=== PATIENT | female | born 1990 | race Caucasian/White ===

== ENCOUNTER 2021-05-24 12:01 | Inpatient (IN) ==
[2021-05-24 12:51] LABS: Hematocrit (blood only) 36.9 % (37-47); Hemoglobin 12.3 g/dL (12.0-16.0); Mean Corpuscular Hemoglobin 26.6 pg (25-34); Mean Corpuscular Hgb Conc 33.3 g/dL (32-36); Mean Corpuscular Volume 79.9 fL (80-100); Mean Platelet Volume 10.7 fL (7.4-10.4); Platelet Count 286 K/uL (130-400); RDW Coefficient of Variation 13.9 % (11.5-14.5); RDW Standard Deviation 39.9 fL (36.4-46.3); Red Blood Count 4.62 M/uL (4.2-5.4)
[2021-05-24 13:06] LABS: Albumin Level 2.8 gm/dl (3.4-5.0); BUN Creatinine Ratio 15.1 (10-20); Calcium 8.8 mg/dl (8.5-10.1); Creatinine Clr Calc Pharmacy 171.5 ml/min; Est GFR (African American) 139.3 ml/min; Est GFR (Non-African American) 120.2 ml/min; Potassium 3.8 mmol/L (3.5-5.1)
[2021-05-24 13:09] LABS: Albumin Globulin Ratio 0.7 (0.9-2); Bilirubin,Total 0.4 mg/dl (0.2-1); Total Protein 6.8 gm/dl (6.4-8.2)
[2021-05-24] MEDS ORDERED: OXYTOCIN 30 UNITS/500 ML BAG IV PRN ×2 (13:47)
[2021-05-24 13:52] LABS: Protein Creatinine Ratio Urine 0.1 (0-0.2); Total Protein Urine Random 33.8 mg/dl (0-11.9)
--- NOTE | 2021-05-24 13:55 | History & Physical Report ---
Date of Service May 24, 2021 Assessment & Plan (1) Gestational hypertension: (2) Gestational diabetes mellitus (GDM) affecting : Plan: 30 y/o G1 at 40 1/7 wga admitted w/ gHTN -mild range BPs, 1 severe range with normal repeat -Fetus cat 1 -Labor - orourke bulb placed after verbal consent was obtained, pt tolerated well. Will have pit as well -GBS neg -gHTN - labs and UP:C wnl, will continue to monitor -GDM - will check bg q4hrs -Epidural PRN History of Present Illness Chief Complaint: HTN Primary Care Provider: Dominique Sesay MD 30 y/o G1 at 40 1/7 wga w/ TOREY 16 by LMP 11 c/w 1st tri US presents for PIH workup from clinic. Seen today as [place] in preparation for IOL tomorrow. Mild range BPs were noted as well as MALIN and was sent for further eval. Here, continued to have mild range on arrival. Denied MALIN, vision change, CP, SOB, RUQ/epigastric pain here. +FM; denies regular ctx, LOF, VB PNI: Hx CHILD NURSE shunt, ok to push per Dr. 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: G1 current Menarche 15, q28-30d Denies hx STIs Last pap 2016, denies hx abnl Allergies Allergy/AdvReac Type Severity Reaction Status Date / Time No Known Allergies Allergy Mild Verified 05/24/21 12:54 Home Medications Medication Instructions Recorded Confirmed Type breast pump #1 ea 03/18/21 05/24/21 Rx acetone (urine) test (Ketone Urine #50 ea 04/01/21 05/24/21 Rx Test) blood sugar diagnostic (OneTouch #150 ea 04/01/21 05/24/21 Rx Verio test strips) blood-glucose meter (OneTouch #1 ea 04/01/21 05/24/21 Rx Verio Flex meter) lancets 33 gauge (OneTouch Delica #150 ea 04/01/21 05/24/21 Rx Plus Lancet) omeprazole 20 mg tablet,delayed 20 mg PO HS 05/22/21 05/24/21 History release vits no.124-ferrous fum 1 tab PO HS 05/22/21 05/24/21 History 27 mg iron-folic acid 800 mcg tablet ( Vitamin) venlafaxine 75 mg capsule,extended 75 mg PO HS 05/22/21 05/24/21 History release 24 hr Patient History Medical History Anxiety History of gastroesophageal reflux (GERD) History of thyroid nodule Hydrocephalus Migraine headache Obesity Seizure Surgical History H/O brain surgery Third Ventriculostomy-2013 Shunt in Head-2014 Shunt- 2019 H/O esophagogastroduodenoscopy H/O thumb surgery S/P wisdom tooth extraction CHILD NURSE (ventriculoperitoneal) shunt status Family History Grandfather Myocardial infarction Other Basal cell carcinoma Hypertension Denies family history of Ovarian cancer Prostate cancer Breast cancer Colorectal cancer Social History Smoking Status: Never smoker Second Hand Exposure: No; Hx Alcohol Use: No Hx Substance Use: No Preferred Language: Sami Visual Impairment: No Limitations Hearing Ability: Normal Beliefs That Will Affect Care: None marital status: marital status details: Lionel Sherman (33) [phone] Current Living Situation: Significant Other Current Living Situation Comment: apartment current occupational status: employed current occupation: [employer] Other Information That Helps Us Care for You: No Feels Safe at Home: Yes Safety Concerns: Feels Safe At This Time Childhood Exposure to Second-Hand Smoke: Yes Dental Care, Regularly: Yes Physical Activity Frequency: 1-2 Times per Week Assistive Devices: None Physical Exam Constitutional: WD/WN, vitals as above Respiratory: normal respiratory effort; no respiratory distress and no labored breathing Genitourinary: OB Exam Abdomen: + vertex (confirmed by US) and + estimated weight (8-9) Manual OB Exam: + cervical dilation (1.5), + cervical effacement 50% and + station -2 OB Exam Monitor Tracing: + external FHT monitor used, + external uterine monitor used (irreg ctx) and + category I (135/mod/+accel/-decel) Results & Data ([facility]) Vital Signs (Past 12 Hours) Vital Signs Temp Pulse Resp BP 05/24/21 13:24 84 162/100 H 05/24/21 13:09 87 151/98 H 05/24/21 12:56 98.2 F 18 05/24/21 12:53 88 145/91 H 05/24/21 12:38 83 152/94 H 05/24/21 12:22 98.7 F 18 05/24/21 12:19 90 134/92 Laboratory Results OB Labs: Blood Type O Negative 10/14/20 Antibody Screen NEGATIVE 03/04/21 Hemoglobin 11.6 g/dL (12.0-16.0) L 03/04/21 Hematocrit 33.9 % (37-47) L 03/04/21 Mean Corpuscular Volume 82.1 fL (80-100) 10/14/20 Platelet Count 336 K/uL (130-400) 10/14/20 Rubella IgG Antibody Immune (Immune) 10/14/20 Rapid Plasma Reagin Nonreactive (Nonreactive) 10/14/20 Hepatitis B Surface Antigen Neg (Neg) 10/14/20 HIV (1&2) Ab and P24 Ag, 4th Gener Neg (Neg) 10/14/20 Glucose 1 Hour 50 gm Load 166 mg/dl (70-130) H 03/04/21 OB Optional Labs: Chlamydia trachomatis RNA NOT DETECTED (NOT DETECTED) 10/14/20 Neisseria gonorrhoeae RNA NOT DETECTED (NOT DETECTED) 10/14/20 Thyroid Stimulating Hormone (TSH) 1.220 uIu/ml (0.300-4.500) 10/14/20 Diagnostic Findings Ant plac Coding Level of Care Code None Diagnoses Gestational hypertension O13.9 Gestational diabetes mellitus (GDM) affecting O24.419 CPT Codes Misx Procedure Codes - 10371 Placement of cervical dilator: 71113 Placement of cervical dilator ([id number])
[2021-05-24] MEDS: LACTATED RINGER'S 1,000 ML IV PRN ×2 (15:23→21:55)
--- NOTE | 2021-05-24 18:41 | Labor Progress Brief Note ---
Date of Service May 24, 2021 Subjective Orourke bulb out Assessment & Plan (1) Gestational hypertension: (2) Gestational diabetes mellitus (GDM) affecting : Plan: 30 y/o G1 at 40 1/7 wga admitted w/ gHTN -mild range BPs, stable -Fetus cat 1, difficult -Labor - s/p orourke bulb, continue titrating pit. Will attempt to arom with next check to place internals due to difficulty tracing -GBS neg -gHTN - labs and UP:C wnl, currently stable -GDM - BG q4hrs, due for check soon -Epidural PRN Admission and Anticipated Discharge Date Admission Date: May 24, 2021 Physical Exam Genitourinary: Manual OB Exam: + cervical dilation 3 cm, + cervical effacement 50% and + station -2 OB Exam Monitor Tracing: + external FHT monitor used, + external uterine monitor used (q3-5) and + category I (125/mod/+accel/-decel) Results & Data ([facility]) Vital Signs (Past 12 Hours) Vital Signs Temp Pulse Resp BP 05/24/21 17:56 74 130/89 05/24/21 17:05 77 130/91 05/24/21 16:25 80 136/95 05/24/21 15:25 78 138/91 05/24/21 15:05 77 141/85 H 05/24/21 14:38 80 140/91 05/24/21 14:24 81 137/89 05/24/21 14:08 78 146/81 H 05/24/21 13:54 83 139/92 05/24/21 13:24 84 162/100 H 05/24/21 13:09 87 151/98 H 05/24/21 12:56 98.2 F 18 05/24/21 12:53 88 145/91 H 05/24/21 12:38 83 152/94 H 05/24/21 12:22 98.7 F 18 05/24/21 12:19 90 134/92 Coding Level of Care Code None Diagnoses Gestational hypertension O13.9 Gestational diabetes mellitus (GDM) affecting O24.419
[2021-05-24] MEDS ORDERED: ePHEDrine sulfate 50 MG/ML AMP ONE (21:43)
[2021-05-24] MEDS ORDERED: SODIUM CHLORIDE 0.9% INJ 10 ML VIAL ONE (21:43)
[2021-05-24] MEDS ORDERED: fentaNYL citrate 100 MCG/2 ML VIAL ONE (21:43)
[2021-05-24] MEDS ORDERED: BUPIVACAINE 0.25% 30 ML VIAL ONE (21:43)
[2021-05-24] MEDS ORDERED: fentaNYL 2MCG/ML ROPIVACAINE 1.25MG/ML 100 ML BAG EPI ONE (21:44)
--- NOTE | 2021-05-24 22:18 | Anesthesiology Consultation ---
Date of Service May 24, 2021 Assessment & Plan Chart Review Chart Review: Acceptable Risk for Labor Epidural Consults Requested none ASA ASA3 Proposed Anesthesia Anesthesia Type: Labor Epidural Risk / Benefits Reviewed With: PT / POA / Parent / Guardian, Accepts Plan and Informed Consent Obtained History Height/Weight Height: 5 ft 9 in Weight: 114.759 kg Allergies Allergy/AdvReac Type Severity Reaction Status Date / Time No Known Allergies Allergy Mild Verified 05/24/21 12:54 Medications Home Medications Medication Instructions Recorded Confirmed Last Taken breast pump #1 ea 03/18/21 05/24/21 Unknown acetone (urine) test (Ketone Urine #50 ea 04/01/21 05/24/21 Unknown Test) blood sugar diagnostic (OneTouch #150 ea 04/01/21 05/24/21 Unknown Verio test strips) blood-glucose meter (OneTouch #1 ea 04/01/21 05/24/21 Unknown Verio Flex meter) lancets 33 gauge (OneTouch Delica #150 ea 04/01/21 05/24/21 Unknown Plus Lancet) omeprazole 20 mg tablet,delayed 20 mg PO HS 05/22/21 05/24/21 05/23/21 release vits no.124-ferrous fum 1 tab PO HS 05/22/21 05/24/21 05/23/21 27 mg iron-folic acid 800 mcg tablet ( Vitamin) venlafaxine 75 mg capsule,extended 75 mg PO HS 05/22/21 05/24/21 05/23/21 release 24 hr Active Medications Generic Name Dose Route Start Last Admin Trade Name Freq PRN Reason Stop Dose Admin Lactated Ringer's 1,000 mls @ 125 mls/hr 05/24/21 13:47 05/24/21 21:55 Lr IV 05/26/21 13:46 125 mls/hr .Q8H PRN Administration L&D Protocol Protocol Oxytocin 30 units in 500 mls @ 10 mls/hr 05/24/21 13:47 05/24/21 18:40 Pitocin IV 05/26/21 13:46 0.6 units/hr .Q24H PRN 10 mls/hr Labor Induction/Augmentation Titration Protocol 0.6 UNITS/HR Past Medical History Medical History Anxiety History of gastroesophageal reflux (GERD) History of thyroid nodule Hydrocephalus Migraine headache Obesity Seizure Exercise / Class Metabolic Activity II 4-5 Yardwork/Stairs/Walk up hill Past Family History Family History Grandfather Myocardial infarction Other Basal cell carcinoma Hypertension Denies family history of Ovarian cancer Prostate cancer Breast cancer Colorectal cancer Past Surgical History Surgical History H/O brain surgery Third Ventriculostomy-2013 Shunt in Head-2014 Shunt- 2019 H/O esophagogastroduodenoscopy H/O thumb surgery S/P wisdom tooth extraction 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 Past Anesthesia History No Hx of Anesthesia Complications and No Family Hx of Anesthesia Complications History of PONV No Hx of PONV and No Hx of Motion Sickness Social History Smoking Status: Never smoker Hx Alcohol Use: No Hx Substance Use: No substance use type: does not use Physical Exam Vital Signs Last Vital Signs Temp 98.1 F 05/24/21 22:07 Pulse 78 05/24/21 22:13 Resp 18 05/24/21 22:00 BP 141/93 H 05/24/21 22:07 Pulse Ox 97 05/24/21 22:13 ENMT Mouth: no dentition abnormality Thyromental Distance: > or= 3.5 Finger Breadths Mallampati Class: II Neck normal visual inspection Respiratory normal respiratory effort Auscultation: lungs clear to auscultation bilaterally Cardiovascular Rate/Rhythm: regular rate and regular rhythm Testing Laboratory Results 05/24/21 12:31 05/24/21 12:31 05/24/21 05/24/21 05/24/21 19:15 14:44 14:43 POC Glucose 76 77 67 L*
[2021-05-24] MEDS ORDERED: NALOXONE HCL 1 MG in SODIUM CHLORIDE 0.9% 1000ML 1,000 ML IV PRN (22:42)
[2021-05-24] MEDS ORDERED: NALOXONE HCL 0.4 MG/1 ML VIAL/CARP IV PRN (22:42)
[2021-05-24] MEDS ORDERED: fentaNYL 2MCG/ML ROPIVACAINE 1.25MG/ML 100 ML BAG EPI PRN (22:42)
[2021-05-24] MEDS ORDERED: diphenhydrAMINE 50 MG/ML VIAL IV PRN (22:42)
[2021-05-24] MEDS ORDERED: ePHEDrine sulfate 50 MG/ML AMP IV PRN (22:42)
[2021-05-24] MEDS ORDERED: ONDANSETRON INJ 2 MG/ML 2 ML VIAL IV PRN (22:42)
[2021-05-24] MEDS ORDERED: NALBUPHINE HCL INJ 10 MG/ML AMP IV PRN (22:42)
--- NOTE | 2021-05-25 00:02 | Labor Progress Brief Note ---
Date of Service May 24, 2021 Subjective More comfortable w/ epidural Assessment & Plan (1) Gestational hypertension: (2) Gestational diabetes mellitus (GDM) affecting : Plan: 30 y/o G1 at 40 2/7 wga admitted w/ gHTN -mild range BPs, stable -Fetus cat 1 -Labor - planned to arom after epidural and now able to as more comfortable for mec fluid, internals placed for more accurate monitoring. Continue pit titration -GBS neg -gHTN - labs and UP:C wnl, currently stable -GDM - BG q4hrs, wnl -Epidural in place Admission and Anticipated Discharge Date Admission Date: May 24, 2021 Physical Exam Genitourinary: Manual OB Exam: + cervical dilation 3 cm, + cervical effacement 50%, + station -2 and + amniotic fluid (AROM mec) OB Exam Monitor Tracing: + scalp electrode used, + intra-uterine pressure catheter used (placed, q3) and + category I (130/mod/+accel/-decel) Results & Data ([facility]) Vital Signs (Past 12 Hours) Vital Signs Temp Pulse Resp BP Pulse Ox 05/24/21 23:53 88 96 05/24/21 23:48 65 97 05/24/21 23:45 102 H 93 05/24/21 23:44 80 136/77 05/24/21 23:43 86 94 05/24/21 23:39 88 94 05/24/21 23:38 88 95 05/24/21 23:34 85 94 05/24/21 23:33 85 95 05/24/21 23:30 18 05/24/21 23:29 83 141/81 H 05/24/21 23:28 86 94 05/24/21 23:23 85 94 05/24/21 23:18 85 94 05/24/21 23:17 85 94 05/24/21 23:14 88 146/80 H 05/24/21 23:13 86 94 05/24/21 23:12 89 94 05/24/21 23:08 84 94 05/24/21 23:04 85 94 05/24/21 23:03 82 96 05/24/21 23:00 18 05/24/21 22:59 78 142/80 H 05/24/21 22:58 76 96 05/24/21 22:57 77 143/83 H 05/24/21 22:55 80 147/78 H 05/24/21 22:53 84 158/93 H 97 05/24/21 22:51 81 141/87 H 05/24/21 22:49 91 H 159/92 H 05/24/21 22:48 99 H 97 05/24/21 22:47 86 141/87 H 05/24/21 22:45 89 143/85 H 05/24/21 22:43 88 145/85 H 97 05/24/21 22:41 86 149/87 H 05/24/21 22:39 85 148/84 H 05/24/21 22:38 84 96 05/24/21 22:37 86 153/80 H 05/24/21 22:35 83 158/84 H 05/24/21 22:33 87 142/78 H 94 05/24/21 22:31 72 130/75 05/24/21 22:29 78 128/68 05/24/21 22:28 84 96 05/24/21 22:23 90 81 L 05/24/21 22:19 81 155/91 H 05/24/21 22:18 78 95 05/24/21 22:13 78 97 05/24/21 22:08 80 97 05/24/21 22:07 98.1 F 70 141/93 H 05/24/21 22:06 72 146/100 H 05/24/21 22:03 80 96 05/24/21 22:00 18 05/24/21 21:58 80 96 05/24/21 21:53 78 97 05/24/21 21:48 83 98 05/24/21 21:43 81 99 05/24/21 21:38 76 97 05/24/21 21:30 18 05/24/21 21:00 74 18 128/73 05/24/21 20:30 18 05/24/21 20:03 73 132/82 05/24/21 20:02 18 05/24/21 19:30 18 05/24/21 19:03 98.1 F 18 05/24/21 18:57 98.1 F 80 18 132/80 05/24/21 17:56 74 130/89 05/24/21 17:05 77 130/91 05/24/21 16:25 80 136/95 08/17/21 15:25 78 138/91 05/24/21 15:05 77 141/85 H 05/24/21 14:38 80 140/91 05/24/21 14:24 81 137/89 05/24/21 14:08 78 146/81 H 05/24/21 13:54 83 139/92 05/24/21 13:24 84 162/100 H 05/24/21 13:09 87 151/98 H 05/24/21 12:56 98.2 F 18 05/24/21 12:53 88 145/91 H 05/24/21 12:38 83 152/94 H 05/24/21 12:22 98.7 F 18 05/24/21 12:19 90 134/92 Coding Level of Care Code None Diagnoses Gestational hypertension O13.9 Gestational diabetes mellitus (GDM) affecting O24.419
[2021-05-25] MEDS ORDERED: NURSING L&D Epidural Breakthrough Pain Update ONE ×2 (02:41→04:58)
--- NOTE | 2021-05-25 03:21 | Labor Progress Brief Note ---
Date of Service May 25, 2021 Subjective Very uncomfortable despite epidural, ?IUPC working Assessment & Plan (1) Gestational hypertension: (2) Gestational diabetes mellitus (GDM) affecting : Plan: 30 y/o G1 at 40 2/7 wga admitted w/ gHTN -mild range BPs, stable -Fetus cat 1 -Labor - IUPC still in place and responding appropriately. Pit continues -GBS neg -gHTN - labs and UP:C wnl, currently stable -GDM - BG q4hrs, wnl -Epidural in place, will check with anesthesia about rebolus Admission and Anticipated Discharge Date Admission Date: May 24, 2021 Physical Exam Genitourinary: Manual OB Exam: + cervical dilation (3-4), + cervical effacement 50% and + station -2 OB Exam Monitor Tracing: + scalp electrode used, + intra-uterine pressure catheter used (in place, q3) and + category I (125/mod/+accel/-decel) Results & Data ([facility]) Vital Signs (Past 12 Hours) Vital Signs Temp Pulse Resp BP Pulse Ox 05/25/21 03:15 85 136/88 05/25/21 03:13 104 H 97 05/25/21 03:08 92 H 95 05/25/21 03:03 91 H 94 05/25/21 03:00 96 H 18 150/88 H 05/25/21 02:58 87 96 05/25/21 02:53 83 95 05/25/21 02:48 80 94 05/25/21 02:44 75 143/85 H 05/25/21 02:43 95 H 96 05/25/21 02:40 78 94 05/25/21 02:38 86 95 05/25/21 02:33 89 93 05/25/21 02:31 90 94 05/25/21 02:30 82 18 142/84 H 05/25/21 02:28 94 H 93 05/25/21 02:25 79 94 05/25/21 02:23 85 97 05/25/21 02:18 90 97 05/25/21 02:14 78 141/87 H 05/25/21 02:13 79 97 05/25/21 02:08 78 93 05/25/21 02:03 77 97 05/25/21 02:00 98.1 F 18 05/25/21 01:58 92 H 92 08/18/21 01:57 73 94 05/25/21 01:53 77 97 05/25/21 01:48 80 98 05/25/21 01:44 74 133/78 93 05/25/21 01:43 77 98 05/25/21 01:38 83 96 05/25/21 01:33 81 95 05/25/21 01:30 18 05/25/21 01:29 78 130/74 05/25/21 01:28 80 97 05/25/21 01:23 113 H 98 05/25/21 01:18 84 97 05/25/21 01:15 77 124/70 05/25/21 01:13 78 97 05/25/21 01:08 84 96 05/25/21 01:03 85 96 05/25/21 01:00 77 18 129/72 05/25/21 00:58 79 97 05/25/21 00:53 75 96 05/25/21 00:48 95 H 97 05/25/21 00:44 85 135/75 05/25/21 00:43 80 97 05/25/21 00:38 89 96 18 00:33 81 96 18 00:30 18 05/25/21 00:29 82 128/79 05/25/21 00:28 81 96 18 00:23 78 97 05/25/21 00:18 76 97 05/25/21 00:15 98.1 F 75 18 133/79 18 00:13 72 98 18 00:08 80 96 18 00:04 82 94 18 00:03 77 95 05/24/21 23:59 75 132/81 05/24/21 23:58 72 97 05/24/21 23:53 88 96 05/24/21 23:48 65 97 05/24/21 23:45 102 H 93 05/24/21 23:44 80 136/77 1721 23:43 86 94 1721 23:39 88 94 05/24/21 23:38 88 95 1721 23:34 85 94 17 23:33 85 95 17 23:30 18 05/24/21 23:29 83 141/81 H 05/24/21 23:28 86 94 05/24/21 23:23 85 94 05/24/21 23:18 85 94 05/24/21 23:17 85 94 05/24/21 23:14 88 146/80 H 05/24/21 23:13 86 94 05/24/21 23:12 89 94 05/24/21 23:08 84 94 05/24/21 23:04 85 94 05/24/21 23:03 82 96 05/24/21 23:00 18 05/24/21 22:59 78 142/80 H 05/24/21 22:58 76 96 05/24/21 22:57 77 143/83 H 05/24/21 22:55 80 147/78 H 05/24/21 22:53 84 158/93 H 97 05/24/21 22:51 81 141/87 H 05/24/21 22:49 91 H 159/92 H 05/24/21 22:48 99 H 97 05/24/21 22:47 86 141/87 H 05/24/21 22:45 89 143/85 H 05/24/21 22:43 88 145/85 H 97 05/24/21 22:41 86 149/87 H 05/24/21 22:39 85 148/84 H 05/24/21 22:38 84 96 05/24/21 22:37 86 153/80 H 05/24/21 22:35 83 158/84 H 05/24/21 22:33 87 142/78 H 94 05/24/21 22:31 72 130/75 05/24/21 22:29 78 128/68 05/24/21 22:28 84 96 05/24/21 22:23 90 81 L 05/24/21 22:19 81 155/91 H 05/24/21 22:18 78 95 05/24/21 22:13 78 97 05/24/21 22:08 80 97 05/24/21 22:07 98.1 F 70 141/93 H 05/24/21 22:06 72 146/100 H 05/24/21 22:03 80 96 05/24/21 22:00 18 05/24/21 21:58 80 96 05/24/21 21:53 78 97 05/24/21 21:48 83 98 05/24/21 21:43 81 99 05/24/21 21:38 76 97 05/24/21 21:30 18 05/24/21 21:00 74 18 128/73 05/24/21 20:30 18 05/24/21 20:03 73 132/82 05/24/21 20:02 18 05/24/21 19:30 18 05/24/21 19:03 98.1 F 18 05/24/21 18:57 98.1 F 80 18 132/80 05/24/21 17:56 74 130/89 05/24/21 17:05 77 130/91 05/24/21 16:25 80 136/95 05/24/21 15:25 78 138/91 Coding Level of Care Code None Diagnoses Gestational hypertension O13.9 Gestational diabetes mellitus (GDM) affecting O24.419
[2021-05-25] MEDS ORDERED: fentaNYL citrate 100 MCG/2 ML VIAL ONE ×3 (03:22→18:01)
[2021-05-25] MEDS ORDERED: BUPIVACAINE 0.25% 30 ML VIAL ONE (03:22)
--- NOTE | 2021-05-25 04:44 | Communication Note ---
Date of Service: May 25, 2021 The patient stated having increasing labor pains despite the epidural. I checked her sensation with an ice test and she had no level. The patient was in a greement that we should place another epidural. Another epidural was placed at L3/4. The patient did not have any change in sensation in her lower extremities but she did admit that her labor pains were much improved. The patient did note having some nausea and neck discomfort after epidural placement. I recommended that watch her symptoms, and we would re-evaluate if her symptoms worsened. I spoke with the OB nurse, and the plan was to revert to the original epidural settings because the previous epidural placement was in question. The patient was otherwise satisfied and comfortable after the 2nd epidural placement. Dr. Mcfadden was made aware of the patient's status.
[2021-05-25] MEDS: LACTATED RINGER'S 1,000 ML IV PRN ×2 (05:35→16:26)
--- NOTE | 2021-05-25 07:32 | Labor Progress Brief Note ---
Date of Service May 25, 2021 Subjective More comfortable w/ epidural, still can feel legs like normal but ctx pain improved Assessment & Plan (1) Gestational hypertension: (2) Gestational diabetes mellitus (GDM) affecting : Plan: 30 y/o G1 at 40 2/7 wga admitted w/ gHTN -mild range BPs, stable -Fetus cat 1 -Labor - IUPC replaced because contractions picked up seemed to change significantly without movement, unsure if ctx pattern or IUPC. Pit at 14, continue titration, now showing some progression -GBS neg -gHTN - labs and UP:C wnl, currently stable -GDM - BG q4hrs, wnl -Epidural replaced, doing better. Admission and Anticipated Discharge Date Admission Date: May 24, 2021 Physical Exam Genitourinary: Manual OB Exam: + cervical dilation 4 cm, + cervical effacement 70% and + station -2 OB Exam Monitor Tracing: + scalp electrode used, + intra-uterine pressure catheter used (q3 but ?working, replaced with this check) and + category I (125/mod/+accel/-decel) Results & Data ([facility]) Vital Signs (Past 12 Hours) Vital Signs Temp Pulse Resp BP Pulse Ox 05/25/21 07:25 86 94 05/25/21 07:20 100 H 95 05/25/21 07:18 75 140/86 05/25/21 07:15 95 H 95 05/25/21 07:10 91 H 95 05/25/21 07:05 102 H 94 05/25/21 07:04 102 H 130/78 05/25/21 07:00 82 18 96 05/25/21 06:55 84 96 05/25/21 06:50 82 96 05/25/21 06:48 81 128/70 05/25/21 06:45 85 95 05/25/21 06:40 86 95 05/25/21 06:35 85 95 05/25/21 06:34 79 129/70 05/25/21 06:30 84 18 95 05/25/21 06:25 84 95 05/25/21 06:20 85 95 05/25/21 06:19 85 131/68 05/25/21 06:15 89 96 05/25/21 06:10 82 96 05/25/21 06:05 100 H 94 05/25/21 06:03 84 133/80 05/25/21 06:00 104 H 18 96 05/25/21 05:55 77 96 05/25/21 05:50 79 97 05/25/21 05:48 83 130/75 05/25/21 05:45 84 96 05/25/21 05:40 85 96 05/25/21 05:35 80 96 05/25/21 05:33 98.1 F 78 18 141/87 H 05/25/21 05:30 80 95 05/25/21 05:25 81 94 05/25/21 05:20 80 96 05/25/21 05:18 96 H 149/93 H 05/25/21 05:15 79 96 05/25/21 05:10 83 95 05/25/21 05:05 81 95 05/25/21 05:03 83 147/85 H 05/25/21 05:00 92 H 18 96 05/25/21 04:55 77 97 05/25/21 04:50 88 96 05/25/21 04:48 75 140/87 05/25/21 04:45 76 132/78 95 05/25/21 04:43 86 132/77 05/25/21 04:41 77 129/74 05/25/21 04:40 81 94 05/25/21 04:39 77 139/79 05/25/21 04:38 80 141/75 H 05/25/21 04:35 83 149/87 H 96 05/25/21 04:34 83 89 L 05/25/21 04:33 77 141/90 H 05/25/21 04:30 98.1 F 72 18 144/91 H 97 05/25/21 04:27 89 159/86 H 05/25/21 04:25 89 94 05/25/21 04:20 89 92 05/25/21 04:15 84 95 05/25/21 04:14 94 H 126/82 05/25/21 04:10 85 96 05/25/21 04:05 91 H 94 05/25/21 04:00 82 97 05/25/21 03:59 72 134/82 05/25/21 03:55 86 96 05/25/21 03:50 90 95 05/25/21 03:45 76 134/80 05/25/21 03:43 88 98 05/25/21 03:41 91 H 80 L 05/25/21 03:38 83 97 18 03:33 91 H 95 05/25/21 03:30 18 05/25/21 03:29 85 143/89 H 05/25/21 03:28 91 H 98 05/25/21 03:23 85 96 05/25/21 03:18 79 98 05/25/21 03:15 85 136/88 05/25/21 03:13 104 H 97 05/25/21 03:08 92 H 95 05/25/21 03:03 91 H 94 05/25/21 03:00 96 H 18 150/88 H 05/25/21 02:58 87 96 05/25/21 02:53 83 95 05/25/21 02:48 80 94 05/25/21 02:44 75 143/85 H 05/25/21 02:43 95 H 96 05/25/21 02:40 78 94 05/25/21 02:38 86 95 05/25/21 02:33 89 93 05/25/21 02:31 90 94 05/25/21 02:30 82 18 142/84 H 05/25/21 02:28 94 H 93 05/25/21 02:25 79 94 05/25/21 02:23 85 97 05/25/21 02:18 90 97 05/25/21 02:14 78 141/87 H 05/25/21 02:13 79 97 05/25/21 02:08 78 93 05/25/21 02:03 77 97 05/25/21 02:00 98.1 F 18 05/25/21 01:58 92 H 92 05/25/21 01:57 73 94 05/25/21 01:53 77 97 05/25/21 01:48 80 98 18 01:44 74 133/78 93 18 01:43 77 98 05/25/21 01:38 83 96 05/25/21 01:33 81 95 18 01:30 18 1821 01:29 78 130/74 1821 01:28 80 97 18 01:23 113 H 98 05/25/21 01:18 84 97 05/25/21 01:15 77 124/70 05/25/21 01:13 78 97 08/18/21 01:08 84 96 05/25/21 01:03 85 96 05/25/21 01:00 77 18 129/72 05/25/21 00:58 79 97 05/25/21 00:53 75 96 05/25/21 00:48 95 H 97 05/25/21 00:44 85 135/75 05/25/21 00:43 80 97 05/25/21 00:38 89 96 05/25/21 00:33 81 96 05/25/21 00:30 18 05/25/21 00:29 82 128/79 05/25/21 00:28 81 96 05/25/21 00:23 78 97 05/25/21 00:18 76 97 05/25/21 00:15 98.1 F 75 18 133/79 05/25/21 00:13 72 98 05/25/21 00:08 80 96 05/25/21 00:04 82 94 05/25/21 00:03 77 95 05/24/21 23:59 75 132/81 05/24/21 23:58 72 97 05/24/21 23:53 88 96 05/24/21 23:48 65 97 05/24/21 23:45 102 H 93 05/24/21 23:44 80 136/77 05/24/21 23:43 86 94 05/24/21 23:39 88 94 05/24/21 23:38 88 95 05/24/21 23:34 85 94 05/24/21 23:33 85 95 05/24/21 23:30 18 05/24/21 23:29 83 141/81 H 05/24/21 23:28 86 94 05/24/21 23:23 85 94 05/24/21 23:18 85 94 05/24/21 23:17 85 94 05/24/21 23:14 88 146/80 H 05/24/21 23:13 86 94 05/24/21 23:12 89 94 05/24/21 23:08 84 94 05/24/21 23:04 85 94 05/24/21 23:03 82 96 05/24/21 23:00 18 05/24/21 22:59 78 142/80 H 05/24/21 22:58 76 96 05/24/21 22:57 77 143/83 H 05/24/21 22:55 80 147/78 H 05/24/21 22:53 84 158/93 H 97 05/24/21 22:51 81 141/87 H 05/24/21 22:49 91 H 159/92 H 05/24/21 22:48 99 H 97 05/24/21 22:47 86 141/87 H 05/24/21 22:45 89 143/85 H 05/24/21 22:43 88 145/85 H 97 05/24/21 22:41 86 149/87 H 05/24/21 22:39 85 148/84 H 05/24/21 22:38 84 96 05/24/21 22:37 86 153/80 H 05/24/21 22:35 83 158/84 H 05/24/21 22:33 87 142/78 H 94 05/24/21 22:31 72 130/75 05/24/21 22:29 78 128/68 05/24/21 22:28 84 96 05/24/21 22:23 90 81 L 05/24/21 22:19 81 155/91 H 05/24/21 22:18 78 95 05/24/21 22:13 78 97 05/24/21 22:08 80 97 05/24/21 22:07 98.1 F 70 141/93 H 05/24/21 22:06 72 146/100 H 05/24/21 22:03 80 96 05/24/21 22:00 18 05/24/21 21:58 80 96 05/24/21 21:53 78 97 05/24/21 21:48 83 98 05/24/21 21:43 81 99 05/24/21 21:38 76 97 05/24/21 21:30 18 05/24/21 21:00 74 18 128/73 05/24/21 20:30 18 05/24/21 20:03 73 132/82 05/24/21 20:02 18 05/24/21 19:30 18 Coding Level of Care Code None Diagnoses Gestational hypertension O13.9 Gestational diabetes mellitus (GDM) affecting O24.419
--- NOTE | 2021-05-25 09:59 | Labor Progress Brief Note ---
Date of Service May 25, 2021 Subjective Patient now off of bedpan; had felt like she should pass a BM and was sitting on bedpan for over 20min but states she wasn't really pushing, just "hoping something would come out." Passed some gas, no stool. No pain with contractions and denies urge to push. Assessment & Plan (1) Gestational hypertension: Plan: BP not severe. Patient without preeclampsia symptoms at this time, and pr/cr ratio was only 0.1 despite office dip called 2+ so patient has been managed as gHTN without severe features. Discussed with her that lack of progress in IOL for many hours plus pelvic outlet assessment have me concerned for possible CPD / difficulty delivering vaginally. Discussed that objective data on MVU's have been in doubt based on IUPC readings thus far. Discussed that indication for moving to could be distress, maternal request, fever or chorio, or 6+ hours of adequate MVU without progress, and that right now there is no need to move to for any of these reasons / she is not requesting it. Replaced IUPC with permission of patient and FOB, and new readings appear more consistent with proper IUPC function and show MVU are likely around 100, not at goal of 200-250. Pit has been at 12 and will be titrated upwards to goal if possible. Patient had opportunity to ask questions, agrees with plan to continue IOL at this time, does not wish to elect yet, and is hopeful to see cervical progress with improved MVU. (2) Gestational diabetes mellitus (GDM) affecting : Plan: glucose Q4h per prior plan, has been OK Admission and Anticipated Discharge Date Admission Date: May 24, 2021 Physical Exam Physical Exam: Cvx still 4/75/-2. Pelvic outlet feels narrow. FHT Cat 1 [place] Q2 but IUPC tip was almost completely out past the cervix. EFM in place, Gonzalez in place. Temp checked while I was in the room, afebrile. Results & Data ([facility]) Vital Signs (Past 12 Hours) Vital Signs Temp Pulse Resp BP Pulse Ox 05/25/21 09:50 99 H 97 05/25/21 09:46 100 H 131/82 05/25/21 09:45 88 97 05/25/21 09:40 92 H 95 05/25/21 09:35 87 94 05/25/21 09:31 85 130/78 05/25/21 09:30 91 H 94 05/25/21 09:25 86 94 05/25/21 09:20 85 94 05/25/21 09:18 83 125/70 05/25/21 09:15 83 94 05/25/21 09:10 85 95 05/25/21 09:05 82 96 05/25/21 09:01 80 135/77 05/25/21 09:00 87 18 95 05/25/21 08:55 87 96 05/25/21 08:50 88 96 05/25/21 08:45 93 H 96 05/25/21 08:40 94 H 96 05/25/21 08:35 83 96 05/25/21 08:33 85 150/96 H 05/25/21 08:30 87 18 96 05/25/21 08:25 108 H 96 05/25/21 08:20 97 H 96 05/25/21 08:17 93 H 144/82 H 05/25/21 08:15 90 96 05/25/21 08:10 96 H 95 05/25/21 08:05 94 H 94 05/25/21 08:02 101 H 137/86 05/25/21 08:00 91 H 18 94 05/25/21 07:55 91 H 95 05/25/21 07:50 99 H 95 05/25/21 07:48 93 H 139/87 05/25/21 07:45 91 H 94 05/25/21 07:40 92 H 94 05/25/21 07:35 92 H 95 05/25/21 07:33 93 H 145/89 H 05/25/21 07:30 91 H 18 95 05/25/21 07:25 86 94 05/25/21 07:20 100 H 95 05/25/21 07:18 75 140/86 05/25/21 07:15 95 H 95 05/25/21 07:10 91 H 95 05/25/21 07:05 102 H 94 05/25/21 07:04 102 H 130/78 05/25/21 07:00 82 18 96 05/25/21 06:55 84 96 05/25/21 06:50 82 96 05/25/21 06:48 81 128/70 05/25/21 06:45 85 95 05/25/21 06:40 86 95 05/25/21 06:35 85 95 05/25/21 06:34 79 129/70 05/25/21 06:30 84 18 95 05/25/21 06:25 84 95 05/25/21 06:20 85 95 05/25/21 06:19 85 131/68 05/25/21 06:15 89 96 05/25/21 06:10 82 96 05/25/21 06:05 100 H 94 05/25/21 06:03 84 133/80 05/25/21 06:00 104 H 18 96 05/25/21 05:55 77 96 05/25/21 05:50 79 97 05/25/21 05:48 83 130/75 05/25/21 05:45 84 96 05/25/21 05:40 85 96 05/25/21 05:35 80 96 05/25/21 05:33 98.1 F 78 18 141/87 H 05/25/21 05:30 80 95 05/25/21 05:25 81 94 05/25/21 05:20 80 96 05/25/21 05:18 96 H 149/93 H 05/25/21 05:15 79 96 05/25/21 05:10 83 95 05/25/21 05:05 81 95 05/25/21 05:03 83 147/85 H 05/25/21 05:00 92 H 18 96 05/25/21 04:55 77 97 05/25/21 04:50 88 96 05/25/21 04:48 75 140/87 05/25/21 04:45 76 132/78 95 05/25/21 04:43 86 132/77 05/25/21 04:41 77 129/74 05/25/21 04:40 81 94 05/25/21 04:39 77 139/79 05/25/21 04:38 80 141/75 H 05/25/21 04:35 83 149/87 H 96 05/25/21 04:34 83 89 L 05/25/21 04:33 77 141/90 H 05/25/21 04:30 98.1 F 72 18 144/91 H 97 05/25/21 04:27 89 159/86 H 05/25/21 04:25 89 94 05/25/21 04:20 89 92 05/25/21 04:15 84 95 05/25/21 04:14 94 H 126/82 05/25/21 04:10 85 96 05/25/21 04:05 91 H 94 05/25/21 04:00 82 97 05/25/21 03:59 72 134/82 05/25/21 03:55 86 96 05/25/21 03:50 90 95 05/25/21 03:45 76 134/80 05/25/21 03:43 88 98 05/25/21 03:41 91 H 80 L 05/25/21 03:38 83 97 05/25/21 03:33 91 H 95 05/25/21 03:30 18 05/25/21 03:29 85 143/89 H 05/25/21 03:28 91 H 98 05/25/21 03:23 85 96 05/25/21 03:18 79 98 05/25/21 03:15 85 136/88 05/25/21 03:13 104 H 97 05/25/21 03:08 92 H 95 05/25/21 03:03 91 H 94 05/25/21 03:00 96 H 18 150/88 H 05/25/21 02:58 87 96 05/25/21 02:53 83 95 05/25/21 02:48 80 94 05/25/21 02:44 75 143/85 H 05/25/21 02:43 95 H 96 05/25/21 02:40 78 94 05/25/21 02:38 86 95 05/25/21 02:33 89 93 05/25/21 02:31 90 94 05/25/21 02:30 82 18 142/84 H 05/25/21 02:28 94 H 93 05/25/21 02:25 79 94 05/25/21 02:23 85 97 05/25/21 02:18 90 97 08 02:14 78 141/87 H 05/25/21 02:13 79 97 05/25/21 02:08 78 93 05/25/21 02:03 77 97 05/25/21 02:00 98.1 F 18 05/25/21 01:58 92 H 92 05/25/21 01:57 73 94 05/25/21 01:53 77 97 05/25/21 01:48 80 98 18 01:44 74 133/78 93 18 01:43 77 98 05/25/21 01:38 83 96 05/25/21 01:33 81 95 05/25/21 01:30 18 18 01:29 78 130/74 05/25/21 01:28 80 97 18 01:23 113 H 98 05/25/21 01:18 84 97 05/25/21 01:15 77 124/70 05/25/21 01:13 78 97 05/25/21 01:08 84 96 05/25/21 01:03 85 96 05/25/21 01:00 77 18 129/72 05/25/21 00:58 79 97 05/25/21 00:53 75 96 05/25/21 00:48 95 H 97 05/25/21 00:44 85 135/75 05/25/21 00:43 80 97 05/25/21 00:38 89 96 05/25/21 00:33 81 96 05/25/21 00:30 18 05/25/21 00:29 82 128/79 05/25/21 00:28 81 96 05/25/21 00:23 78 97 05/25/21 00:18 76 97 05/25/21 00:15 98.1 F 75 18 133/79 05/25/21 00:13 72 98 18 00:08 80 96 18 00:04 82 94 18 00:03 77 95 05/24/21 23:59 75 132/81 05/24/21 23:58 72 97 05/24/21 23:53 88 96 05/24/21 23:48 65 97 05/24/21 23:45 102 H 93 17 23:44 80 136/77 17 23:43 86 94 1721 23:39 88 94 05/24/21 23:38 88 95 1721 23:34 85 94 17 23:33 85 95 17 23:30 18 05/24/21 23:29 83 141/81 H 17 23:28 86 94 17 23:23 85 94 05/24/21 23:18 85 94 08/17/21 23:17 85 94 05/24/21 23:14 88 146/80 H 05/24/21 23:13 86 94 05/24/21 23:12 89 94 05/24/21 23:08 84 94 05/24/21 23:04 85 94 05/24/21 23:03 82 96 05/24/21 23:00 18 05/24/21 22:59 78 142/80 H 05/24/21 22:58 76 96 05/24/21 22:57 77 143/83 H 05/24/21 22:55 80 147/78 H 05/24/21 22:53 84 158/93 H 97 05/24/21 22:51 81 141/87 H 05/24/21 22:49 91 H 159/92 H 05/24/21 22:48 99 H 97 05/24/21 22:47 86 141/87 H 05/24/21 22:45 89 143/85 H 05/24/21 22:43 88 145/85 H 97 05/24/21 22:41 86 149/87 H 05/24/21 22:39 85 148/84 H 05/24/21 22:38 84 96 05/24/21 22:37 86 153/80 H 05/24/21 22:35 83 158/84 H 05/24/21 22:33 87 142/78 H 94 05/24/21 22:31 72 130/75 05/24/21 22:29 78 128/68 05/24/21 22:28 84 96 05/24/21 22:23 90 81 L 05/24/21 22:19 81 155/91 H 05/24/21 22:18 78 95 05/24/21 22:13 78 97 05/24/21 22:08 80 97 05/24/21 22:07 98.1 F 70 141/93 H 05/24/21 22:06 72 146/100 H 05/24/21 22:03 80 96 05/24/21 22:00 18 05/24/21 21:58 80 96 Coding Level of Care Code None Diagnoses Gestational hypertension O13.9 Gestational diabetes mellitus (GDM) affecting O24.419
[2021-05-25] MEDS ORDERED: LACTATED RINGER'S 1,000 ML IV SCH ×2 (13:30→19:16)
[2021-05-25] MEDS ORDERED: CITRIC ACID/SODIUM CITRATE 15 ML UDC PO SCH (13:45)
--- NOTE | 2021-05-25 13:48 | Labor Progress Brief Note ---
Date of Service May 25, 2021 Subjective Comfortable with epidural, no changes. Assessment & Plan (1) Gestational hypertension: Plan: Discussed scenario with patient, who is increasingly frustrated with long course of labor. Option to increase pit above 20 to strive for adequate MVU. status, maternal temp both allow for continued IOL efforts, gHTN remains without severe features, and we have not reached adequate MVU let alone persisted there for sufficient time to diagnose a failure of progress. However, patient is aware that I am unconvinced her pelvis will permit delivery, and that the uterine contraction pattern itself can be a sign of CPD / uterine fatigue after this many hours without change. She wishes to proceed to without further attempts at induction. Her FOB is out of the hospital getting food at a restaurant right now, and she would like him present for the consent process, so we agree to delay that for his return. In addition, staffing dictates that I can have better assistance (a second physician) if we wait a few hours rather than proceed immediately, and the patient is agreeable to waiting unless medical need arises to move more quickly. I am rechecking a CBC and will continue to monitor the fetus, turn off pitocin now, and unless need arises sooner we will anticipate at approximately [id number] tonight. Admission and Anticipated Discharge Date Admission Date: May 24, 2021 Physical Exam Physical Exam: FHT Cat 1 Pit @ 20 [place] Q1min but MVU minimal with each contraction; has never reach adequacy. Cvx still 4/75/-2. Results & Data ([facility]) Vital Signs (Past 12 Hours) Vital Signs Temp Pulse Resp BP Pulse Ox 05/25/21 13:40 95 H 95 05/25/21 13:35 96 H 97 05/25/21 13:31 93 H 153/87 H 05/25/21 13:30 92 H 18 97 05/25/21 13:25 97 H 97 05/25/21 13:20 93 H 96 05/25/21 13:17 98 H 140/68 05/25/21 13:15 96 H 96 05/25/21 13:10 97 H 96 05/25/21 13:06 116 H 86 L 05/25/21 13:05 99 H 94 05/25/21 13:02 95 H 132/78 05/25/21 13:00 93 H 95 05/25/21 12:55 89 94 0818 12:50 90 94 18 12:46 93 H 136/76 18 12:45 90 95 05/25/21 12:40 90 94 05/25/21 12:35 92 H 96 05/25/21 12:32 92 H 129/75 05/25/21 12:30 92 H 18 96 05/25/21 12:25 90 96 05/25/21 12:20 100 H 96 05/25/21 12:17 93 H 142/88 H 05/25/21 12:15 103 H 95 05/25/21 12:10 102 H 95 05/25/21 12:05 87 95 05/25/21 12:02 80 139/78 05/25/21 12:00 88 18 95 05/25/21 11:55 84 95 05/25/21 11:50 85 94 05/25/21 11:47 84 136/76 05/25/21 11:45 87 16 94 05/25/21 11:40 86 94 05/25/21 11:35 88 94 05/25/21 11:31 96 H 142/76 H 05/25/21 11:30 90 95 05/25/21 11:25 87 95 05/25/21 11:20 89 94 05/25/21 11:16 82 135/73 05/25/21 11:15 81 95 05/25/21 11:10 81 94 05/25/21 11:05 85 18 93 05/25/21 11:02 87 142/87 H 05/25/21 11:00 93 H 93 05/25/21 10:55 87 97 05/25/21 10:50 88 96 18 10:47 88 132/75 18 10:45 87 97 18 10:40 91 H 97 05/25/21 10:35 95 H 97 05/25/21 10:31 98 H 18 144/88 H 18 10:30 95 H 94 05/25/21 10:25 94 H 95 05/25/21 10:20 89 96 18 10:18 86 140/90 05/25/21 10:15 87 96 05/25/21 10:10 87 96 05/25/21 10:05 89 95 05/25/21 10:02 88 136/96 05/25/21 10:00 97.9 F 84 18 96 05/25/21 09:55 108 H 97 05/25/21 09:50 99 H 97 05/25/21 09:46 100 H 131/82 05/25/21 09:45 88 97 05/25/21 09:40 92 H 95 05/25/21 09:35 87 94 05/25/21 09:31 85 130/78 05/25/21 09:30 91 H 94 05/25/21 09:25 86 94 05/25/21 09:20 85 94 05/25/21 09:18 83 125/70 05/25/21 09:15 83 94 05/25/21 09:10 85 95 05/25/21 09:05 82 96 05/25/21 09:01 80 135/77 05/25/21 09:00 87 18 95 05/25/21 08:55 87 96 05/25/21 08:50 88 96 05/25/21 08:45 93 H 96 05/25/21 08:40 94 H 96 05/25/21 08:35 83 96 05/25/21 08:33 85 150/96 H 05/25/21 08:30 87 18 96 05/25/21 08:25 108 H 96 05/25/21 08:20 97 H 96 05/25/21 08:17 93 H 144/82 H 05/25/21 08:15 90 96 05/25/21 08:10 96 H 95 05/25/21 08:05 94 H 94 05/25/21 08:02 101 H 137/86 05/25/21 08:00 91 H 18 94 05/25/21 07:55 91 H 95 05/25/21 07:50 99 H 95 05/25/21 07:48 93 H 139/87 05/25/21 07:45 91 H 94 05/25/21 07:40 92 H 94 05/25/21 07:35 92 H 95 05/25/21 07:33 93 H 145/89 H 05/25/21 07:30 91 H 18 95 05/25/21 07:25 86 94 05/25/21 07:20 100 H 95 05/25/21 07:18 75 140/86 05/25/21 07:15 95 H 95 05/25/21 07:10 91 H 95 05/25/21 07:05 102 H 94 18 07:04 102 H 130/78 05/25/21 07:00 82 18 96 18 06:55 84 96 05/25/21 06:50 82 96 05/25/21 06:48 81 128/70 05/25/21 06:45 85 95 05/25/21 06:40 86 95 05/25/21 06:35 85 95 05/25/21 06:34 79 129/70 05/25/21 06:30 84 18 95 05/25/21 06:25 84 95 05/25/21 06:20 85 95 05/25/21 06:19 85 131/68 05/25/21 06:15 89 96 05/25/21 06:10 82 96 05/25/21 06:05 100 H 94 05/25/21 06:03 84 133/80 05/25/21 06:00 104 H 18 96 05/25/21 05:55 77 96 05/25/21 05:50 79 97 05/25/21 05:48 83 130/75 05/25/21 05:45 84 96 05/25/21 05:40 85 96 05/25/21 05:35 80 96 05/25/21 05:33 98.1 F 78 18 141/87 H 05/25/21 05:30 80 95 05/25/21 05:25 81 94 05/25/21 05:20 80 96 05/25/21 05:18 96 H 149/93 H 05/25/21 05:15 79 96 05/25/21 05:10 83 95 05/25/21 05:05 81 95 05/25/21 05:03 83 147/85 H 05/25/21 05:00 92 H 18 96 05/25/21 04:55 77 97 05/25/21 04:50 88 96 05/25/21 04:48 75 140/87 05/25/21 04:45 76 132/78 95 18/21 04:43 86 132/77 18 04:41 77 129/74 05/25/21 04:40 81 94 05/25/21 04:39 77 139/79 0818/21 04:38 80 141/75 H 05/25/21 04:35 83 149/87 H 96 05/25/21 04:34 83 89 L 05/25/21 04:33 77 141/90 H 05/25/21 04:30 98.1 F 72 18 144/91 H 97 05/25/21 04:27 89 159/86 H 05/25/21 04:25 89 94 05/25/21 04:20 89 92 05/25/21 04:15 84 95 05/25/21 04:14 94 H 126/82 05/25/21 04:10 85 96 05/25/21 04:05 91 H 94 05/25/21 04:00 82 97 05/25/21 03:59 72 134/82 05/25/21 03:55 86 96 05/25/21 03:50 90 95 05/25/21 03:45 76 134/80 05/25/21 03:43 88 98 05/25/21 03:41 91 H 80 L 05/25/21 03:38 83 97 05/25/21 03:33 91 H 95 05/25/21 03:30 18 05/25/21 03:29 85 143/89 H 05/25/21 03:28 91 H 98 05/25/21 03:23 85 96 05/25/21 03:18 79 98 05/25/21 03:15 85 136/88 05/25/21 03:13 104 H 97 05/25/21 03:08 92 H 95 05/25/21 03:03 91 H 94 05/25/21 03:00 96 H 18 150/88 H 05/25/21 02:58 87 96 05/25/21 02:53 83 95 05/25/21 02:48 80 94 05/25/21 02:44 75 143/85 H 05/25/21 02:43 95 H 96 05/25/21 02:40 78 94 05/25/21 02:38 86 95 05/25/21 02:33 89 93 05/25/21 02:31 90 94 05/25/21 02:30 82 18 142/84 H 05/25/21 02:28 94 H 93 05/25/21 02:25 79 94 05/25/21 02:23 85 97 05/25/21 02:18 90 97 05/25/21 02:14 78 141/87 H 05/25/21 02:13 79 97 05/25/21 02:08 78 93 05/25/21 02:03 77 97 05/25/21 02:00 98.1 F 18 05/25/21 01:58 92 H 92 05/25/21 01:57 73 94 05/25/21 01:53 77 97 05/25/21 01:48 80 98 05/25/21 01:44 74 133/78 93 Coding Level of Care Code None Diagnoses Gestational hypertension O13.9
[2021-05-25 13:59] LABS: Hematocrit (blood only) 35.7 % (37-47); Hemoglobin 12.2 g/dL (12.0-16.0); Mean Corpuscular Hemoglobin 26.9 pg (25-34); Mean Corpuscular Hgb Conc 34.2 g/dL (32-36); Mean Corpuscular Volume 78.6 fL (80-100); Mean Platelet Volume 10.5 fL (7.4-10.4); Platelet Count 268 K/uL (130-400); RDW Coefficient of Variation 13.6 % (11.5-14.5); RDW Standard Deviation 38.7 fL (36.4-46.3); Red Blood Count 4.54 M/uL (4.2-5.4); White Blood Count 16.21 K/uL (4.8-10.8)
--- NOTE | 2021-05-25 17:05 | Labor Progress Brief Note ---
Date of Service May 25, 2021 Subjective Comfortable with epidural, prepared for Assessment & Plan (1) Gestational hypertension: Plan: Mild gHTN. Labor induction without progress despite prolonged use of pitocin, stopped IOL a few hours ago at patient request due to no progress and poor uterine contraction pattern despite pit @ 20. Now able to move to with staffing / available resources. Bicitra/Abx given, Dr. Abrams en route to assist. Consent completed earlier with patient and FOB, no new questions at this time, will move to OR. Admission and Anticipated Discharge Date Admission Date: May 24, 2021 Physical Exam Physical Exam: FHT Cat 1 [place] irregular / no pattern at this point Cervix not reassessed Results & Data ([facility]) Vital Signs (Past 12 Hours) Vital Signs Temp Pulse Resp BP Pulse Ox 05/25/21 16:55 99 H 96 05/25/21 16:50 97 H 96 05/25/21 16:46 90 137/67 05/25/21 16:45 94 H 96 05/25/21 16:40 102 H 96 05/25/21 16:35 107 H 96 05/25/21 16:32 105 H 148/71 H 05/25/21 16:30 100 H 18 96 05/25/21 16:25 95 H 96 05/25/21 16:20 93 H 97 05/25/21 16:17 103 H 150/74 H 05/25/21 16:15 101 H 97 05/25/21 16:10 93 H 96 05/25/21 16:05 94 H 96 05/25/21 16:01 88 141/86 H 05/25/21 16:00 98.6 F 90 18 96 05/25/21 15:55 92 H 96 05/25/21 15:50 99 H 95 05/25/21 15:48 91 H 135/75 05/25/21 15:45 92 H 96 05/25/21 15:40 93 H 96 05/25/21 15:35 91 H 97 05/25/21 15:31 90 141/73 H 05/25/21 15:30 93 H 18 96 05/25/21 15:25 93 H 96 05/25/21 15:20 101 H 96 05/25/21 15:16 92 H 137/81 05/25/21 15:15 92 H 96 05/25/21 15:10 99 H 97 05/25/21 15:05 105 H 96 05/25/21 15:01 100 H 132/70 05/25/21 15:00 97.9 F 93 H 18 97 05/25/21 14:55 95 H 97 05/25/21 14:50 91 H 97 05/25/21 14:47 86 131/75 05/25/21 14:45 92 H 97 05/25/21 14:40 89 96 05/25/21 14:35 88 96 05/25/21 14:32 88 154/67 H 05/25/21 14:30 90 18 95 05/25/21 14:25 88 96 05/25/21 14:20 97 H 96 05/25/21 14:17 93 H 140/90 05/25/21 14:15 84 97 05/25/21 14:10 94 H 97 05/25/21 14:05 89 93 05/25/21 14:01 85 150/77 H 05/25/21 14:00 97 H 92 05/25/21 13:55 93 H 97 05/25/21 13:50 93 H 95 05/25/21 13:46 90 141/80 H 05/25/21 13:45 93 H 95 05/25/21 13:40 95 H 95 05/25/21 13:35 96 H 97 05/25/21 13:31 93 H 153/87 H 05/25/21 13:30 92 H 18 97 05/25/21 13:25 97 H 97 05/25/21 13:20 93 H 96 05/25/21 13:17 98 H 140/68 05/25/21 13:15 96 H 96 05/25/21 13:10 97 H 96 05/25/21 13:06 116 H 86 L 05/25/21 13:05 99 H 94 05/25/21 13:02 95 H 132/78 05/25/21 13:00 93 H 95 05/25/21 12:55 89 94 05/25/21 12:50 90 94 05/25/21 12:46 93 H 136/76 05/25/21 12:45 90 95 05/25/21 12:40 90 94 05/25/21 12:35 92 H 96 05/25/21 12:32 92 H 129/75 05/25/21 12:30 92 H 18 96 05/25/21 12:25 90 96 05/25/21 12:20 100 H 96 05/25/21 12:17 93 H 142/88 H 05/25/21 12:15 103 H 95 05/25/21 12:10 102 H 95 05/25/21 12:05 87 95 05/25/21 12:02 80 139/78 05/25/21 12:00 88 18 95 05/25/21 11:55 84 95 05/25/21 11:50 85 94 05/25/21 11:47 84 136/76 05/25/21 11:45 87 16 94 05/25/21 11:40 86 94 05/25/21 11:35 88 94 05/25/21 11:31 96 H 142/76 H 05/25/21 11:30 90 95 05/25/21 11:25 87 95 05/25/21 11:20 89 94 05/25/21 11:16 82 135/73 05/25/21 11:15 81 95 05/25/21 11:10 81 94 05/25/21 11:05 85 18 93 05/25/21 11:02 87 142/87 H 05/25/21 11:00 93 H 93 05/25/21 10:55 87 97 05/25/21 10:50 88 96 05/25/21 10:47 88 132/75 05/25/21 10:45 87 97 05/25/21 10:40 91 H 97 05/25/21 10:35 95 H 97 05/25/21 10:31 98 H 18 144/88 H 05/25/21 10:30 95 H 94 05/25/21 10:25 94 H 95 05/25/21 10:20 89 96 05/25/21 10:18 86 140/90 05/25/21 10:15 87 96 05/25/21 10:10 87 96 05/25/21 10:05 89 95 05/25/21 10:02 88 136/96 05/25/21 10:00 97.9 F 84 18 96 05/25/21 09:55 108 H 97 05/25/21 09:50 99 H 97 05/25/21 09:46 100 H 131/82 05/25/21 09:45 88 97 08/18/21 09:40 92 H 95 05/25/21 09:35 87 94 05/25/21 09:31 85 130/78 05/25/21 09:30 91 H 94 05/25/21 09:25 86 94 05/25/21 09:20 85 94 05/25/21 09:18 83 125/70 05/25/21 09:15 83 94 05/25/21 09:10 85 95 05/25/21 09:05 82 96 05/25/21 09:01 80 135/77 05/25/21 09:00 87 18 95 05/25/21 08:55 87 96 05/25/21 08:50 88 96 05/25/21 08:45 93 H 96 05/25/21 08:40 94 H 96 05/25/21 08:35 83 96 05/25/21 08:33 85 150/96 H 05/25/21 08:30 87 18 96 05/25/21 08:25 108 H 96 05/25/21 08:20 97 H 96 05/25/21 08:17 93 H 144/82 H 05/25/21 08:15 90 96 05/25/21 08:10 96 H 95 05/25/21 08:05 94 H 94 05/25/21 08:02 101 H 137/86 05/25/21 08:00 91 H 18 94 05/25/21 07:55 91 H 95 05/25/21 07:50 99 H 95 05/25/21 07:48 93 H 139/87 05/25/21 07:45 91 H 94 05/25/21 07:40 92 H 94 05/25/21 07:35 92 H 95 05/25/21 07:33 93 H 145/89 H 05/25/21 07:30 91 H 18 95 05/25/21 07:25 86 94 05/25/21 07:20 100 H 95 05/25/21 07:18 75 140/86 05/25/21 07:15 95 H 95 05/25/21 07:10 91 H 95 05/25/21 07:05 102 H 94 05/25/21 07:04 102 H 130/78 05/25/21 07:00 82 18 96 05/25/21 06:55 84 96 05/25/21 06:50 82 96 05/25/21 06:48 81 128/70 05/25/21 06:45 85 95 05/25/21 06:40 86 95 05/25/21 06:35 85 95 05/25/21 06:34 79 129/70 05/25/21 06:30 84 18 95 05/25/21 06:25 84 95 05/25/21 06:20 85 95 05/25/21 06:19 85 131/68 05/25/21 06:15 89 96 05/25/21 06:10 82 96 05/25/21 06:05 100 H 94 05/25/21 06:03 84 133/80 05/25/21 06:00 104 H 18 96 05/25/21 05:55 77 96 05/25/21 05:50 79 97 05/25/21 05:48 83 130/75 05/25/21 05:45 84 96 05/25/21 05:40 85 96 05/25/21 05:35 80 96 05/25/21 05:33 98.1 F 78 18 141/87 H 05/25/21 05:30 80 95 05/25/21 05:25 81 94 05/25/21 05:20 80 96 05/25/21 05:18 96 H 149/93 H 05/25/21 05:15 79 96 05/25/21 05:10 83 95 05/25/21 05:05 81 95 Coding Level of Care Code None Diagnoses Gestational hypertension O13.9
[2021-05-25] MEDS ORDERED: ONDANSETRON INJ 2 MG/ML 2 ML VIAL ONE (17:06)
[2021-05-25] MEDS ORDERED: KETOROLAC 30 MG/ML VIAL ONE (17:06)
[2021-05-25] MEDS ORDERED: OXYTOCIN 10 UNITS/ML VIAL ONE ×2 (17:06→17:57)
[2021-05-25] MEDS ORDERED: LIDOCAINE 2%/EPINEPHRINE 1:200,000 20 ML SDV ONE (17:06)
[2021-05-25] MEDS ORDERED: MoRPHine SULFATE PF 1 MG/ML 10 ML AMP/VIAL ONE (17:07)
[2021-05-25] MEDS ORDERED: KETAMINE 50 MG/5 ML SYRINGE ONE ×2 (17:41→18:02)
[2021-05-25] MEDS ORDERED: MIDAZOLAM HCL 1 MG/ML 2ML VIAL ONE (18:01)
--- NOTE | 2021-05-25 18:16 | Operative Report ---
[facility] Post Operative Report Pre & Post Diagnosis Operation Date: 05/25/21 13:15 Gestational hypertension without severe features SIUP @ 40w2d Gestaional diabetes, diet controlled Maternal obesity affecting Presence of ventriculoperitoneal shunt I identified the patient and participated in the time-out.: Yes Procedure Operation Date: 05/25/21 13:15 Actual Procedures Low Transverse Primary Section Surgeon Jessica Patino MD Armhole Presser MD Bisi Estimated Blood Loss 600 Findings Consistent with Post-Op Diagnosis Specimens Placenta, Cord blood Anesthesia Type Spinal Complications none Disposition Accompanied Patient To Recovery: Yes Disposition: L&D Description of Procedure The patient was placed operating table in the supine position with a leftward tilt. She was prepped and draped in standard sterile fashion. The anesthetic was tested and found to be adequate. A time-out was held, identifying correct patient, procedure, positioning and preoperative antibiotics. There were no concerns. A Pfannenstiel skin incision was made with a knife and taken down to the underlying layer of fascia. The fascia was incised in the midline with the knife and taken out laterally with scissors. The superior edge of the fascial incision was grasped, elevated and dissected off the underlying rectus both superiorly and inferiorly. The muscles were bluntly in the midline. The peritoneum was entered bluntly. The incision was then stretched. The bladder retractor was placed. The vesicouterine peritoneum was identified, entered with scissors and taken out laterally with scissors. The bladder flap was created digitally. A hysterotomy incision was created transversely in the lower uterine segment, final entry being accomplished in a blunt manner with the finish saw operator's fingers. Stained amniotic fluid was encountered. The finish saw operator's hand was used to elevate the head to the hysterotomy. The head was delivered using mild fundal pressure and a Kiwi-Cup suction; once the head was delivered, the shoulders and body followed without difficulty. The cord was clamped and cut and the was then handed off to the awaiting dispute coordinator. Cord blood was obtained. The placenta was manually extracted. A false knot was seen in the cord, and the placenta/cord were sent for pathology exam. The uterus was exteriorized and cleared of all clot and debris with moistened laparotomy sponges. The hy sterotomy incision was repaired in two layers, the first in a running locked layer, the second (after the uterus was replaced into the maternal abdomen) in an imbricating layer. The ovaries and tubes were seen to be normal bilaterally. A final inspection of the hysterotomy revealed good hemostasis, and warm irrigation was used to ensure the abdominal cavity was clear of clots and debris. The rectus muscles were allowed to reapproximate naturally. The fascia was then reapproximated with 1 Vicryl in a running nonlocked manner. The fascia was examined and found to be free of defect following closure. The subcutaneous tissue was copiously irrigated and reapproximated with 0-chromic, then the skin edges were closed with 4-0 monocryl in a subcuticular fashion. A dermabond dressing was applied. The orourke was found to be draining clear yellow urine at completion of the procedure. I attest to the content of the Intraoperative Record and any orders documented therein. Any exceptions are noted below. I attest to the content of the Intraoperative Record and any orders documented therein. Any exceptions are noted below.
[2021-05-25] MEDS ORDERED: ePHEDrine sulfate 50 MG/ML AMP IV PRN (18:34)
[2021-05-25] MEDS ORDERED: NALOXONE HCL 0.4 MG/1 ML VIAL/CARP IV PRN (18:34)
[2021-05-25] MEDS ORDERED: KETOROLAC 30 MG/ML VIAL IV PRN (18:34)
[2021-05-25] MEDS ORDERED: NALBUPHINE HCL INJ 10 MG/ML AMP IV PRN (18:34)
[2021-05-25] MEDS ORDERED: HYDROmorphone INJ 0.5 MG/0.5 ML SYR IV PRN (18:34)
[2021-05-25] MEDS ORDERED: MoRPHine SULFATE 2 MG/ML CARP IV PRN (18:34)
[2021-05-25] MEDS ORDERED: LACTATED RINGER'S 500 ML IV PRN (18:34)
[2021-05-25] MEDS ORDERED: NALOXONE HCL 0.08 MG in SYRINGE 1.8 ML IV PRN (18:34)
[2021-05-25] MEDS ORDERED: diphenhydrAMINE 50 MG/ML VIAL IV PRN (18:34)
[2021-05-25] MEDS ORDERED: ONDANSETRON INJ 2 MG/ML 2 ML VIAL IV PRN (18:34)
[2021-05-25] MEDS ORDERED: MoRPHine SULFATE PF 1 MG/ML 10 ML AMP/VIAL INT SPINAL ONE (18:34)
[2021-05-25] MEDS ORDERED: NALOXONE HCL 1 MG in SODIUM CHLORIDE 0.9% 1000ML 1,000 ML IV PRN (18:34)
[2021-05-25] MEDS ORDERED: MEPERIDINE HCL 25 MG/ML CARP/VIAL IV PRN (18:34)
--- NOTE | 2021-05-25 18:34 | Anesthesiology Progress Note ---
Date of Service May 25, 2021 Anesthesia Post Procedure Vital Signs Vital Signs: Temp Pulse Resp BP Pulse Ox 05/25/21 18:32 104 H 145/75 H 98 05/25/21 18:27 105 H 97 05/25/21 18:22 105 H 145/90 H 98 05/25/21 16:55 99 H 96 05/25/21 16:50 97 H 96 05/25/21 16:46 90 137/67 05/25/21 16:45 94 H 96 05/25/21 16:40 102 H 96 05/25/21 16:35 107 H 96 05/25/21 16:32 105 H 148/71 H 05/25/21 16:30 100 H 18 96 05/25/21 16:25 95 H 96 05/25/21 16:20 93 H 97 05/25/21 16:17 103 H 150/74 H 05/25/21 16:15 101 H 97 05/25/21 16:10 93 H 96 05/25/21 16:05 94 H 96 05/25/21 16:01 88 141/86 H 05/25/21 16:00 37.0 C 90 18 96 05/25/21 15:55 92 H 96 05/25/21 15:50 99 H 95 05/25/21 15:48 91 H 135/75 05/25/21 15:45 92 H 96 05/25/21 15:40 93 H 96 05/25/21 15:35 91 H 97 05/25/21 15:31 90 141/73 H 05/25/21 15:30 93 H 18 96 05/25/21 15:25 93 H 96 05/25/21 15:20 101 H 96 05/25/21 15:16 92 H 137/81 05/25/21 15:15 92 H 96 05/25/21 15:10 99 H 97 05/25/21 15:05 105 H 96 05/25/21 15:01 100 H 132/70 05/25/21 15:00 36.6 C 93 H 18 97 05/25/21 14:55 95 H 97 05/25/21 14:50 91 H 97 05/25/21 14:47 86 131/75 05/25/21 14:45 92 H 97 05/25/21 14:40 89 96 05/25/21 14:35 88 96 08/18/21 14:32 88 154/67 H 05/25/21 14:30 90 18 95 05/25/21 14:25 88 96 05/25/21 14:20 97 H 96 05/25/21 14:17 93 H 140/90 05/25/21 14:15 84 97 05/25/21 14:10 94 H 97 05/25/21 14:05 89 93 05/25/21 14:01 85 150/77 H 05/25/21 14:00 97 H 92 05/25/21 13:55 93 H 97 05/25/21 13:50 93 H 95 05/25/21 13:46 90 141/80 H 05/25/21 13:45 93 H 95 05/25/21 13:40 95 H 95 05/25/21 13:35 96 H 97 05/25/21 13:31 93 H 153/87 H 05/25/21 13:30 92 H 18 97 05/25/21 13:25 97 H 97 05/25/21 13:20 93 H 96 05/25/21 13:17 98 H 140/68 05/25/21 13:15 96 H 96 05/25/21 13:10 97 H 96 05/25/21 13:06 116 H 86 L 05/25/21 13:05 99 H 94 05/25/21 13:02 95 H 132/78 05/25/21 13:00 93 H 95 05/25/21 12:55 89 94 05/25/21 12:50 90 94 05/25/21 12:46 93 H 136/76 05/25/21 12:45 90 95 05/25/21 12:40 90 94 05/25/21 12:35 92 H 96 05/25/21 12:32 92 H 129/75 05/25/21 12:30 92 H 18 96 05/25/21 12:25 90 96 05/25/21 12:20 100 H 96 05/25/21 12:17 93 H 142/88 H 05/25/21 12:15 103 H 95 05/25/21 12:10 102 H 95 05/25/21 12:05 87 95 05/25/21 12:02 80 139/78 05/25/21 12:00 88 18 95 05/25/21 11:55 84 95 08/1821 11:50 85 94 1821 11:47 84 136/76 05/25/21 11:45 87 16 94 05/25/21 11:40 86 94 05/25/21 11:35 88 94 18 11:31 96 H 142/76 H 05/25/21 11:30 90 95 18 11:25 87 95 05/25/21 11:20 89 94 05/25/21 11:16 82 135/73 05/25/21 11:15 81 95 05/25/21 11:10 81 94 05/25/21 11:05 85 18 93 05/25/21 11:02 87 142/87 H 05/25/21 11:00 93 H 93 05/25/21 10:55 87 97 05/25/21 10:50 88 96 05/25/21 10:47 88 132/75 05/25/21 10:45 87 97 05/25/21 10:40 91 H 97 05/25/21 10:35 95 H 97 05/25/21 10:31 98 H 18 144/88 H 05/25/21 10:30 95 H 94 05/25/21 10:25 94 H 95 05/25/21 10:20 89 96 05/25/21 10:18 86 140/90 05/25/21 10:15 87 96 05/25/21 10:10 87 96 05/25/21 10:05 89 95 05/25/21 10:02 88 136/96 05/25/21 10:00 36.6 C 84 18 96 05/25/21 09:55 108 H 97 05/25/21 09:50 99 H 97 05/25/21 09:46 100 H 131/82 05/25/21 09:45 88 97 18 09:40 92 H 95 05/25/21 09:35 87 94 05/25/21 09:31 85 130/78 05/25/21 09:30 91 H 94 05/25/21 09:25 86 94 05/25/21 09:20 85 94 1821 09:18 83 125/70 18 09:15 83 94 05/25/21 09:10 85 95 05/25/21 09:05 82 96 05/25/21 09:01 80 135/77 05/25/21 09:00 87 18 95 05/25/21 08:55 87 96 05/25/21 08:50 88 96 05/25/21 08:45 93 H 96 05/25/21 08:40 94 H 96 05/25/21 08:35 83 96 05/25/21 08:33 85 150/96 H 05/25/21 08:30 87 18 96 05/25/21 08:25 108 H 96 05/25/21 08:20 97 H 96 05/25/21 08:17 93 H 144/82 H 05/25/21 08:15 90 96 05/25/21 08:10 96 H 95 05/25/21 08:05 94 H 94 05/25/21 08:02 101 H 137/86 05/25/21 08:00 91 H 18 94 05/25/21 07:55 91 H 95 05/25/21 07:50 99 H 95 05/25/21 07:48 93 H 139/87 05/25/21 07:45 91 H 94 05/25/21 07:40 92 H 94 05/25/21 07:35 92 H 95 05/25/21 07:33 93 H 145/89 H 05/25/21 07:30 91 H 18 95 05/25/21 07:25 86 94 05/25/21 07:20 100 H 95 05/25/21 07:18 75 140/86 05/25/21 07:15 95 H 95 05/25/21 07:10 91 H 95 05/25/21 07:05 102 H 94 05/25/21 07:04 102 H 130/78 05/25/21 07:00 82 18 96 05/25/21 06:55 84 96 05/25/21 06:50 82 96 05/25/21 06:48 81 128/70 05/25/21 06:45 85 95 05/25/21 06:40 86 95 05/25/21 06:35 85 95 05/25/21 06:34 79 129/70 05/25/21 06:30 84 18 95 05/25/21 06:25 84 95 05/25/21 06:20 85 95 05/25/21 06:19 85 131/68 05/25/21 06:15 89 96 05/25/21 06:10 82 96 05/25/21 06:05 100 H 94 05/25/21 06:03 84 133/80 05/25/21 06:00 104 H 18 96 05/25/21 05:55 77 96 05/25/21 05:50 79 97 05/25/21 05:48 83 130/75 05/25/21 05:45 84 96 05/25/21 05:40 85 96 05/25/21 05:35 80 96 05/25/21 05:33 36.7 C 78 18 141/87 H 05/25/21 05:30 80 95 05/25/21 05:25 81 94 05/25/21 05:20 80 96 05/25/21 05:18 96 H 149/93 H 05/25/21 05:15 79 96 05/25/21 05:10 83 95 05/25/21 05:05 81 95 05/25/21 05:03 83 147/85 H 05/25/21 05:00 92 H 18 96 05/25/21 04:55 77 97 05/25/21 04:50 88 96 05/25/21 04:48 75 140/87 05/25/21 04:45 76 132/78 95 05/25/21 04:43 86 132/77 05/25/21 04:41 77 129/74 05/25/21 04:40 81 94 05/25/21 04:39 77 139/79 05/25/21 04:38 80 141/75 H 05/25/21 04:35 83 149/87 H 96 05/25/21 04:34 83 89 L 05/25/21 04:33 77 141/90 H 05/25/21 04:30 36.7 C 72 18 144/91 H 97 05/25/21 04:27 89 159/86 H 05/25/21 04:25 89 94 05/25/21 04:20 89 92 05/25/21 04:15 84 95 05/25/21 04:14 94 H 126/82 05/25/21 04:10 85 96 05/25/21 04:05 91 H 94 05/25/21 04:00 82 97 05/25/21 03:59 72 134/82 05/25/21 03:55 86 96 05/25/21 03:50 90 95 05/25/21 03:45 76 134/80 18 03:43 88 98 18 03:41 91 H 80 L 05/25/21 03:38 83 97 05/25/21 03:33 91 H 95 05/25/21 03:30 18 05/25/21 03:29 85 143/89 H 05/25/21 03:28 91 H 98 05/25/21 03:23 85 96 05/25/21 03:18 79 98 05/25/21 03:15 85 136/88 05/25/21 03:13 104 H 97 05/25/21 03:08 92 H 95 05/25/21 03:03 91 H 94 05/25/21 03:00 96 H 18 150/88 H 05/25/21 02:58 87 96 05/25/21 02:53 83 95 05/25/21 02:48 80 94 05/25/21 02:44 75 143/85 H 05/25/21 02:43 95 H 96 05/25/21 02:40 78 94 05/25/21 02:38 86 95 05/25/21 02:33 89 93 05/25/21 02:31 90 94 05/25/21 02:30 82 18 142/84 H 05/25/21 02:28 94 H 93 05/25/21 02:25 79 94 05/25/21 02:23 85 97 05/25/21 02:18 90 97 05/25/21 02:14 78 141/87 H 05/25/21 02:13 79 97 05/25/21 02:08 78 93 05/25/21 02:03 77 97 05/25/21 02:00 36.7 C 18 05/25/21 01:58 92 H 92 05/25/21 01:57 73 94 05/25/21 01:53 77 97 18 01:48 80 98 18 01:44 74 133/78 93 18 01:43 77 98 05/25/21 01:38 83 96 05/25/21 01:33 81 95 18 01:30 18 05/25/21 01:29 78 130/74 18 01:28 80 97 05/25/21 01:23 113 H 98 05/25/21 01:18 84 97 05/25/21 01:15 77 124/70 05/25/21 01:13 78 97 05/25/21 01:08 84 96 05/25/21 01:03 85 96 05/25/21 01:00 77 18 129/72 05/25/21 00:58 79 97 05/25/21 00:53 75 96 05/25/21 00:48 95 H 97 05/25/21 00:44 85 135/75 05/25/21 00:43 80 97 05/25/21 00:38 89 96 05/25/21 00:33 81 96 05/25/21 00:30 18 05/25/21 00:29 82 128/79 05/25/21 00:28 81 96 05/25/21 00:23 78 97 05/25/21 00:18 76 97 05/25/21 00:15 36.7 C 75 18 133/79 05/25/21 00:13 72 98 05/25/21 00:08 80 96 05/25/21 00:04 82 94 05/25/21 00:03 77 95 05/24/21 23:59 75 132/81 05/24/21 23:58 72 97 05/24/21 23:53 88 96 05/24/21 23:48 65 97 05/24/21 23:45 102 H 93 05/24/21 23:44 80 136/77 05/24/21 23:43 86 94 05/24/21 23:39 88 94 05/24/21 23:38 88 95 05/24/21 23:34 85 94 05/24/21 23:33 85 95 05/24/21 23:30 18 05/24/21 23:29 83 141/81 H 05/24/21 23:28 86 94 05/24/21 23:23 85 94 05/24/21 23:18 85 94 05/24/21 23:17 85 94 05/24/21 23:14 88 146/80 H 05/24/21 23:13 86 94 05/24/21 23:12 89 94 05/24/21 23:08 84 94 05/24/21 23:04 85 94 05/24/21 23:03 82 96 05/24/21 23:00 18 05/24/21 22:59 78 142/80 H 05/24/21 22:58 76 96 05/24/21 22:57 77 143/83 H 05/24/21 22:55 80 147/78 H 05/24/21 22:53 84 158/93 H 97 05/24/21 22:51 81 141/87 H 05/24/21 22:49 91 H 159/92 H 05/24/21 22:48 99 H 97 05/24/21 22:47 86 141/87 H 05/24/21 22:45 89 143/85 H 05/24/21 22:43 88 145/85 H 97 05/24/21 22:41 86 149/87 H 05/24/21 22:39 85 148/84 H 05/24/21 22:38 84 96 05/24/21 22:37 86 153/80 H 05/24/21 22:35 83 158/84 H 05/24/21 22:33 87 142/78 H 94 05/24/21 22:31 72 130/75 05/24/21 22:29 78 128/68 05/24/21 22:28 84 96 05/24/21 22:23 90 81 L 05/24/21 22:19 81 155/91 H 05/24/21 22:18 78 95 05/24/21 22:13 78 97 05/24/21 22:08 80 97 05/24/21 22:07 36.7 C 70 141/93 H 05/24/21 22:06 72 146/100 H 05/24/21 22:03 80 96 05/24/21 22:00 18 05/24/21 21:58 80 96 05/24/21 21:53 78 97 05/24/21 21:48 83 98 05/24/21 21:43 81 99 05/24/21 21:38 76 97 05/24/21 21:30 18 05/24/21 21:00 74 18 128/73 05/24/21 20:30 18 05/24/21 20:03 73 132/82 05/24/21 20:02 18 05/24/21 19:30 18 05/24/21 19:03 36.7 C 18 05/24/21 18:57 36.7 C 80 18 132/80 Transfer of Care Handoff Completed per policy Notes Mental Status: alert / awake / arousable Nausea / Vomiting: adequately controlled Pain: adequately controlled Airway Patency, RR, SpO2: stable & adequate BP & HR: stable & adequate Hydration State: stable & adequate Neuraxial Anesthesia: was administered and sensory block is resolving Anesthetic Complications: no major complications apparent and Pt Satisfied with anesthetic care
--- NOTE | 2021-05-25 18:34 | Anesthesia Procedure Note ---
Date of Service May 25, 2021 Anesthesia Post Epidural Note Vital Signs Vital Signs: Temp Pulse Resp BP Pulse Ox 37.0 C 104 H 18 145/75 H 98 05/25/21 16:00 05/25/21 18:32 05/25/21 16:30 05/25/21 18:32 05/25/21 18:32 Notes Mental Status: alert / awake / arousable Nausea / Vomiting: adequately controlled Pain: adequately controlled Airway Patency, RR, SpO2: stable & adequate BP & HR: stable & adequate Hydration State: stable & adequate Neuraxial Anesthesia: was administered and sensory block is resolving Anesthetic Complications: no major complications apparent and Pt Satisfied with anesthetic care Epidural: Removed without complications and With tip intact
[2021-05-25] MEDS ORDERED: SODIUM CHLORIDE 0.9% 1000ML 1,000 ML IV SCH (18:45)
[2021-05-25] MEDS ORDERED: NO NARCOTICS OR SEDATIVES SCH (18:45)
[2021-05-25] MEDS ORDERED: DC INTRASPINAL MORPHINE SCH (18:45)
[2021-05-25] MEDS ORDERED: HYDROCORTISONE ACETATE 25 MG SUPP PR PRN (19:16)
[2021-05-25] MEDS ORDERED: SUPERCREAM 0.870% 15 GM JAR EXT PRN (19:16)
[2021-05-25] MEDS ORDERED: DIPHTHERIA/TETANUS/PERTUSSIS 0.5 ML SYR/VIAL IM ONE (19:16)
[2021-05-25] MEDS ORDERED: diphenhydrAMINE Capsule 25 MG CAP PO PRN (19:16)
[2021-05-25] MEDS ORDERED: SENNA 8.6 MG TAB PO PRN (19:16)
[2021-05-25] MEDS ORDERED: BENZOCAINE 20% AER SPR 82.5 GM CAN EXT PRN (19:16)
[2021-05-25] MEDS ORDERED: MAGNESIUM HYDROXIDE SUSP 30 ML UDC PO PRN (19:16)
[2021-05-25] MEDS ORDERED: OXYTOCIN 30 UNITS in LACTATED RINGER'S 1,000 ML IV SCH (20:00)
[2021-05-25] MEDS: VENLAFAXINE HCL XR 75 MG CAPXR PO SCH (21:08)
[2021-05-25] MEDS: SIMETHICONE 80 MG CHEW PO SCH (21:44)
[2021-05-25] MEDS: DOCUSATE SODIUM 100 MG CAP PO SCH (21:44)
--- NOTE | 2021-05-26 05:38 | Obstetrical Progress Note ---
Date of Service <Dimas John DO - Last Filed: 05/26/21 07:07> May 26, 2021 Assessment & Plan <Dimas John DO - Last Filed: 05/26/21 07:07> (1) Encounter for care and examination after delivery: POD1 - O-, GBS-, RI - Vitals WNL. - Encouraged . - Continue to monitor, remove Orourke catheter, have patient ambulate, and progress from liquid to regular diet when ready. <Jessica Patino MD - Last Filed: 05/26/21 07:19> (1) Encounter for care and examination after delivery: Subjective <Dimas John DO - Last Filed: 05/26/21 07:07> Ambulation: limited ambulation Voiding: orourke catheter in place Passing Gas:: No Diet Tolerance:: clear liquids Lochia:: Moderate Feeding Type:: breast feeding Current Pain Level(1-10): 2 Review of Systems Denies fever, chills, sweats Denies shortness of breath, difficulty breathing, chest pain, palpitations, chest pressure. Denies breast pain. Denies dysuria. Denies headache or changes in vision Physical Exam <Dimas John DO - Last Filed: 05/26/21 07:07> General: Alert, oriented. No acute distress. Cardiac: Regular rate and rhythm, no murmurs/rubs/gallops. Respiratory: Clear to auscultation bilaterally a/p, no wheezes/rales/rhonchi. No increased work of breathing. Symmetrical chest rise. No respiratory distress. Abdomen: Soft, nondistended. Bowel sounds present. Tender to palpation, no rebound or guarding. Uterus: Uterine fundus firm, palpable 3 cm below umbilicus. Surgical scar clean and healing well. : Orourke in place. Lower Extremities: No lower extremity edema or swelling. No deep calf pain. Zachary's negative bilaterally Results & Data ([facility]) <Dimas John DO - Last Filed: 05/26/21 07:07> Vital Signs (Past 12 Hours) Vital Signs Temp Pulse Pulse Resp BP BP Pulse Ox 05/26/21 02:16 16 98 05/26/21 01:30 16 97 05/26/21 00:55 36.8 C 73 16 134/73 100 21 00:36 16 99 05/25/21 23:20 37.0 C 99 H 16 132/83 100 05/25/21 22:05 36.6 C 92 H 16 136/80 100 18 21:05 37.1 C 97 H 18 139/83 99 05/25/21 20:57 99 H 97 05/25/21 20:52 104 H 97 05/25/21 20:47 104 H 96 05/25/21 20:42 114 H 151/87 H 96 05/25/21 20:37 115 H 97 05/25/21 20:32 107 H 18 146/89 H 96 05/25/21 20:27 101 H 97 05/25/21 20:22 100 H 135/75 95 05/25/21 20:17 105 H 96 05/25/21 20:12 101 H 134/81 95 05/25/21 20:07 108 H 95 05/25/21 20:02 112 H 18 142/82 H 95 05/25/21 19:57 112 H 95 05/25/21 19:52 109 H 141/85 H 97 05/25/21 19:47 104 H 96 05/25/21 19:42 107 H 146/83 H 96 05/25/21 19:37 115 H 96 05/25/21 19:33 109 H 160/86 H 05/25/21 19:32 108 H 18 96 05/25/21 19:27 115 H 96 05/25/21 19:24 107 H 94 05/25/21 19:23 105 H 152/72 H 05/25/21 19:22 103 H 18 95 05/25/21 19:17 98 H 96 18 19:13 106 H 138/108 H 05/25/21 19:12 104 H 18 96 05/25/21 19:07 108 H 96 05/25/21 19:02 110 H 18 130/78 96 05/25/21 18:57 118 H 94 05/25/21 18:52 109 H 18 137/77 99 18 18:47 102 H 98 05/25/21 18:42 107 H 16 141/80 H 98 05/25/21 18:37 116 H 98 05/25/21 18:32 106 H 18 138/108 H 98 05/25/21 18:27 105 H 97 05/25/21 18:22 36.6 C 105 H 18 145/90 H 98 <Jessica Patino MD - Last Filed: 05/26/21 07:19> Co-Signing Physician Notes Resident Physician Supervision Note: I interviewed and examined the patient. Discussed with Dr. John and agree with findings and plan as documented in the note. Any exceptions or clarifications are listed here: [ ] Documented By: Jessica Patino MD, FACOG Resident Activity Tracking <Dimas John DO - Last Filed: 05/26/21 07:07> Resident Involvement: Resident Care Provided Care Provided: OB Delivery
[2021-05-26 06:08] LABS: Basophils # (auto) 0.02 K/uL (0-0.2); Basophils % (auto) 0.1 %; Eosinophils # (auto) 0.05 K/uL (0-0.5); Eosinophils % (auto) 0.3 %; Hematocrit (blood only) 32.1 % (37-47); Hemoglobin 10.8 g/dL (12.0-16.0); Immature Granulocytes # (auto) 0.05 K/uL (0.00-0.02); Immature Granulocytes % (auto) 0.3 %; Lymphocytes # (auto) 1.75 K/uL (1.2-3.4); Lymphocytes % (auto) 9.9 %; Mean Corpuscular Hemoglobin 26.5 pg (25-34); Mean Corpuscular Hgb Conc 33.6 g/dL (32-36); Mean Corpuscular Volume 78.9 fL (80-100); Mean Platelet Volume 10.6 fL (7.4-10.4); Monocytes # (auto) 1.58 K/uL (0.11-0.59); Neutrophils # (auto) 14.14 K/uL (1.4-6.5); Neutrophils % (auto) 80.4 %; Platelet Count 254 K/uL (130-400); RDW Coefficient of Variation 13.8 % (11.5-14.5); Red Blood Count 4.07 M/uL (4.2-5.4); White Blood Count 17.59 K/uL (4.8-10.8)
[2021-05-26] MEDS: DOCUSATE SODIUM 100 MG CAP PO SCH ×2 (08:28→19:38)
[2021-05-26] MEDS: FERROUS SULFATE 325 MG TAB PO SCH (08:28)
[2021-05-26] MEDS: PRENATAL VITAMIN 1 TAB PO SCH (08:28)
[2021-05-26] MEDS: SIMETHICONE 80 MG CHEW PO SCH ×4 (08:28→19:38)
[2021-05-26] MEDS ORDERED: CALCIUM CARBONATE 500 MG CHEWABLE TAB PO PRN (12:29)
[2021-05-26] MEDS ORDERED: ONDANSETRON INJ 2 MG/ML 2 ML VIAL IV PRN (12:34)
[2021-05-26] MEDS ORDERED: CALCIUM CARBONATE 500 MG CHEWABLE TAB ONE (12:34)
[2021-05-26] MEDS ORDERED: diphenhydrAMINE 50 MG/ML VIAL IV PRN (12:34)
[2021-05-26] MEDS ORDERED: MEPERIDINE HCL 50 MG/ML CARP IV PRN (12:34)
[2021-05-26] MEDS ORDERED: PROMETHAZINE HCL 25 MG in SODIUM CHLORIDE 0.9% 50 ML IV PRN (12:34)
[2021-05-26] MEDS ORDERED: KETOROLAC 30 MG/ML VIAL IV PRN (12:34)
[2021-05-26] MEDS: oxyCODONE/ACETAMINOPHEN 5mg/325mg TAB PO PRN ×3 (12:45→23:02)
[2021-05-26] MEDS: IBUPROFEN 600 MG TAB PO PRN ×3 (12:45→23:03)
[2021-05-26] MEDS: VENLAFAXINE HCL XR 75 MG CAPXR PO SCH (19:38)
[2021-05-27] MEDS: oxyCODONE/ACETAMINOPHEN 5mg/325mg TAB PO PRN ×4 (03:37→23:25)
[2021-05-27] MEDS: IBUPROFEN 600 MG TAB PO PRN ×4 (03:37→20:13)
--- NOTE | 2021-05-27 06:04 | Obstetrical Progress Note ---
Date of Service <Dimas John DO - Last Filed: 05/27/21 07:04> May 27, 2021 Assessment & Plan <Dimas John DO - Last Filed: 05/27/21 07:04> (1) Encounter for care and examination after delivery: POD2 - O-, GBS-, RI - Vitals WNL this morning. - Hgb 10.8 - Encouraged . - Patient endorsed she would like to go home today rather than tomorrow. Discharge will be based off of readiness of her infant. Discussed following blood pressure readings until she is discharged, then to follow up at clinic in one week to recheck. Discussed discharge instructions with the patient in case she were to go today. <Catia Mathews MD, FACOG - Last Filed: 05/27/21 07:22> (1) Encounter for care and examination after delivery: Subjective <Dimas John DO - Last Filed: 05/27/21 07:04> Ambulation: ambulating normally Voiding: no voiding problems Passing Gas:: Yes Diet Tolerance:: regular diet Lochia:: Moderate Feeding Type:: breast feeding Current Pain Level(1-10): 0 Review of Systems Denies fever, chills, sweats Denies dizziness or lightheadedness. Denies shortness of breath, difficulty breathing, chest pain, palpitations, chest pressure. Denies breast pain. Denies dysuria. Denies headache or changes in vision Physical Exam <Dimas John DO - Last Filed: 05/27/21 07:04> General: Alert, oriented. No acute distress. Cardiac: Regular rate and rhythm, no murmurs/rubs/gallops. Respiratory: Clear to auscultation bilaterally a/p, no wheezes/rales/rhonchi. No increased work of breathing. Symmetrical chest rise. No respiratory distress. Abdomen: Soft, nondistended. Bowel sounds present. Slightly tender to palpation, no rebound or guarding. Uterus: Uterine fundus firm, palpable 3 cm below umbilicus. Surgical scar clean and healing well. Lower Extremities: No lower extremity edema or swelling. No deep calf pain. Zachary's negative bilaterally Results & Data ([facility]) <Dimas John DO - Last Filed: 05/27/21 07:04> Vital Signs (Past 12 Hours) Vital Signs Temp Pulse Resp BP Pulse Ox 05/26/21 22:57 36.7 C 86 16 134/91 98 05/26/21 19:02 36.7 C 89 16 141/91 H 98 <Catia Mathews MD, FACOG - Last Filed: 05/27/21 07:22> Co-Signing Physician Notes Resident Physician Supervision Note: I interviewed and examined the patient. Discussed with Dr. John and agree with findings and plan as documented in the note. Any exceptions or clarifications are listed here: [None] Documented By: Catia Mathews MD, FACOG Resident Activity Tracking <Dimas John DO - Last Filed: 05/27/21 07:04> Resident Involvement: Resident Care Provided Care Provided: OB Delivery
[2021-05-27 06:31] LABS: Hematocrit (blood only) 30.7 % (37-47); Hemoglobin 10.2 g/dL (12.0-16.0)
[2021-05-27] MEDS: SIMETHICONE 80 MG CHEW PO SCH ×4 (08:57→20:13)
[2021-05-27] MEDS: PRENATAL VITAMIN 1 TAB PO SCH (08:57)
[2021-05-27] MEDS: FERROUS SULFATE 325 MG TAB PO SCH (08:57)
[2021-05-27] MEDS: DOCUSATE SODIUM 100 MG CAP PO SCH ×2 (08:57→20:13)
[2021-05-27] MEDS: VENLAFAXINE HCL XR 75 MG CAPXR PO SCH (20:13)
--- NOTE | 2021-05-28 06:15 | Obstetrical Progress Note ---
Date of Service <Dimas John DO - Last Filed: 05/28/21 07:28> May 28, 2021 Assessment & Plan <Dimas John DO - Last Filed: 05/28/21 07:28> (1) Encounter for care and examination after delivery: POD2 - O-, GBS-, RI - Vitals WNL this morning. - Hgb 10.8 - Encouraged . - Discharge for the patient is based off of readiness of her . Discussed nesting with the patient in case she would like to stay while baby is here. Discussed following blood pressure readings until she is discharged, then to follow up at clinic in one week to recheck. Discussed discharge instructions with the patient. <Elli Ennis MD, FACOG - Last Filed: 05/28/21 07:31> (1) Encounter for care and examination after delivery: Subjective <Dimas John DO - Last Filed: 05/28/21 07:28> Ambulation: ambulating normally Voiding: no voiding problems Passing Gas:: Yes Diet Tolerance:: regular diet Lochia:: Moderate Feeding Type:: breast feeding Current Pain Level(1-10): 0 Review of Systems Denies fever, chills, sweats Denies shortness of breath, difficulty breathing, chest pain, palpitations, chest pressure. Denies breast pain. Denies dysuria. Denies headache or changes in vision Physical Exam <Dimas John DO - Last Filed: 05/28/21 07:28> General: Alert, oriented. No acute distress. Cardiac: Regular rate and rhythm, no murmurs/rubs/gallops. Respiratory: Clear to auscultation bilaterally a/p, no wheezes/rales/rhonchi. No increased work of breathing. Symmetrical chest rise. No respiratory distress. Abdomen: Soft, nondistended. Bowel sounds present. Slightly tender to palpation, no rebound or guarding. Uterus: Uterine fundus firm, palpable 3 cm below umbilicus. Surgical scar clean and healing well. Lower Extremities: No lower extremity edema or swelling. No deep calf pain. Zachary's negative bilaterally Results & Data ([facility]) <Dimas LopezamitaDO juan - Last Filed: 05/28/21 07:28> Vital Signs (Past 12 Hours) Vital Signs Temp Pulse Resp BP Pulse Ox 05/27/21 23:25 36.7 C 89 16 134/88 98 05/27/21 19:50 36.9 C 88 18 143/89 H 99 <Elli Ennis MD, FACOG - Last Filed: 05/28/21 07:31> Co-Signing Physician Notes Resident Physician Supervision Note: I was present with Dr. Coello during the history and exam. I discussed the case with the resident and agree with the findings and plan as documented in the note. Any exceptions or clarifications are listed here: [None] Documented By: Elli Ennis MD, FACOG Resident Activity Tracking <Dimas John DO - Last Filed: 05/28/21 07:28> Resident Involvement: Resident Care Provided Care Provided: OB Delivery
--- NOTE | 2021-06-02 17:58 | Discharge Summary ---
Date of Service June 02, 2021 Admission HPI Per Admitting Provider 30 y/o G1 at 40 1/7 wga w/ TOREY 8/16 by LMP 11/9 c/w 1st tri US presents for PIH workup from clinic. Seen today as [place] in preparation for IOL tomorrow. Mild range BPs were noted as well as MALIN and was sent for further eval. Here, continued to have mild range on arrival. Denied MALIN, vision change, CP, SOB, RUQ/epigastric pain here. +FM; denies regular ctx, LOF, VB PNI: Hx [employer] shunt, ok to push per Dr. 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 Her was uncomplicated. Her diet-controlled gestational diabetes remained adequately controlled prior to delivery and will be f/u at the 6wk check. Her HTN remained without severe features and was planned for 1 week short interval f/u after discharge per the physician environmental health physician the date of her departure. Coding Level of Care Code None Diagnoses Gestational hypertension O13.9
== END 2021-05-28 16:30 | disposition home or self-care (01) | DRG 788 ==
LOC: OPB 12:01 → 4S1 12:04 → 4S2 05-25 21:28
DX: O24.420 Gestational diabetes mellitus in childbirth, diet controlled; Z68.37 Body mass index [BMI] 37.0-37.9, adult; O99.214 Obesity complicating childbirth; O13.4 Gestational [pregnancy-induced] hypertension without significant proteinuria, complicating childbirth; E66.9 Obesity, unspecified; Z37.0 Single live birth; Z3A.40 40 weeks gestation of pregnancy

== ENCOUNTER 2022-05-22 05:21 | Inpatient (IN) ==
--- NOTE | 2022-04-27 09:39 | History & Physical Report ---
Date of Service April 27, 2022 Assessment & Plan (1) GDM (gestational diabetes mellitus): (2) with 39 completed weeks gestation: (3) Short interval between pregnancies complicating , antepartum: (4) Previous delivery affecting : Plan Given short interval, do not recommend trial of labor. Therefore proceeding with repeat c/s. The risks of the surgery were discussed with the patient including infection, bleeding, transfusion, damage to surrounding structures with need for further surgery, heart attack, blood clot legs/lungs, stroke or . Questions asked and answered. Consent reviewed and signed. Declined tl. History of Present Illness Chief Complaint: presents for c/s Primary Care Provider: Dominique Sesay MD Patient is a 31yowf who presents to labor and delivery at 39 0/7 weeks for repeat c/s. She has a short interval with a c/s for FTP in 05/2021. Given that, repeat c/s recommended. Has been diet controlled gdm. Last us 03/29, AC 69%, efw 83%, nl dvp. hx of ghtn but pressures have been controlled and on baby asa. and Delivery Plans Prior --repeat c/s planned on 05/2021--short interval C/S SCHEDULED FOR 05/22/[address] BROWN AND DR. HAMPTON ASSIST NEEDS COVID TEST ON 05/18/2022-ORDERED PAT CONSULT SCHEDULED FOR 03/21/2022 @ 1:00PM-Cleared for anesthsia Obesity (BMI between 35-39 @ beginning of ) *Growth US @ 32 wks *Weekly NSTs @ 36wks Hx of GDM *Begin monthly AC Us's @24wks Hx of GHTN baby asa at 12 weeks Need for Rhogam due to RH negative mother Rhogam given 03/08/22 SB History of Ventriculoperitoneal shunt placed 07/08/2020 Hx of thyroid nodule Pfizer COVID vaccination *08/09/21 *08/30/21 Unable to view heart on anatomy x 2 * echo (03/07/22 @ [facility] [place]02/10/22 nl [facility] OB Labs: Blood Type O Negative 11/07/21 Antibody Screen NEGATIVE 03/08/22 Hemoglobin 12.4 g/dL (12.0-16.0) 03/08/22 Hematocrit 36.4 % (37-47) L 03/08/22 Mean Corpuscular Volume 81.0 fL (80-100) 11/07/21 Platelet Count 341 K/uL (130-400) 11/07/21 Rubella IgG Antibody Immune (Immune) 11/07/21 Rapid Plasma Reagin Nonreactive (Nonreactive) 11/07/21 Hepatitis B Surface Antigen Neg (Neg) 11/07/21 Hepatitis C Antibody Neg (Neg) 11/07/21 HIV (1&2) Ab and P24 Ag, 4th Gener Neg (Neg) 11/07/21 Glucose 1 Hour 50 gm Load 166 mg/dl (70-130) H 03/04/21 OB Optional Labs: Chlamydia trachomatis RNA NOT DETECTED (NOT DETECTED) 11/07/21 Neisseria gonorrhoeae RNA NOT DETECTED (NOT DETECTED) 11/07/21 Thyroid Stimulating Hormone (TSH) 0.545 uIu/ml (0.300-4.500) 09/17/21 Labs Reviewed: declined cf/sma/genetics--ak 11/07/21 gbs negative. Allergies Allergy/AdvReac Type Severity Reaction Status Date / Time No Known Allergies Allergy Mild Verified 04/26/22 10:31 Home Medications Medication Instructions Recorded Confirmed Type vits no.124-ferrous fum 1 tab PO HS 05/22/21 04/26/22 History 27 mg iron-folic acid 800 mcg tablet ( Vitamin) omeprazole 20 mg tablet,delayed 20 mg PO DAILY #30 tabs 12/20/21 04/26/22 Rx release aspirin 81 mg tablet,delayed 81 mg PO DAILY #90 tabs 12/30/21 04/26/22 Rx release (Anat Low Dose Aspirin) ondansetron HCl 4 mg tablet 4 mg PO Q6H PRN nausea and 01/09/22 04/26/22 Rx vomiting #30 tabs Patient History Medical History Anxiety GDM (gestational diabetes mellitus) Gestational hypertension Hemorrhoids History of gastroesophageal reflux (GERD) History of thyroid nodule Hydrocephalus s/p BROADCAST OPERATIONS DIRECTOR shunt, shunt revision (2019) Migraine headache Need for rhogam due to Rh negative mother Obesity Paresthesia Polyhydramnios affecting Seizure Most recent 2011 Surgical History H/O brain surgery Third Ventriculostomy (2013) BROADCAST OPERATIONS DIRECTOR shunt (2015) BROADCAST OPERATIONS DIRECTOR shunt revision (2019) H/O esophagogastroduodenoscopy H/O thumb surgery H/O: section Per records, patient had a (05/25/21): Epidural at L4-5 (x1 attempt) at [facility] for labor pain. Per anesthesia communication note: "The patient stated having increasing labor pains despite the epidural. I checked her sensation with an ice test and she had no level. The patient was in agreement that we should place another epidural. Another epidural was placed at L3/4. The patient did not have any change in sensation in her lower extremities but she did admit that her labor pains were much improved. The patient did note having some nausea and neck discomfort after epidural placement. I recommended that watch her symptoms, and we would re-evaluate if her symptoms worsened. I spoke with the OB nurse, and the plan was to revert to the original epidural settings because the previous epidural placement was in question. The patient was otherwise satisfied and comfortable after the 2nd epidural placement." Decision for c/s (patient did not reach adequate MVU for 6+ hours nor achieve full cervical dilation- prolonged course/suspected CPD), epidural removed and SAB placed for c/s- SAB at L3/4 (x1 attempt) at [facility]. S/P wisdom tooth extraction BROADCAST OPERATIONS DIRECTOR (ventriculoperitoneal) shunt status Family History Grandfather Myocardial infarction Mother Basal cell carcinoma Hypertension Grandmother (Maternal) Lymphoma Denies family history of Ovarian cancer Prostate cancer Diabetes Breast cancer Colorectal cancer Social History Smoking Status: Never smoker Second Hand Exposure: No; Hx Alcohol Use: No Hx Substance Use: No Preferred Language: Tristanian Communication Ability: Effective Visual Impairment: No Limitations Hearing Ability: Normal Beliefs That Will Affect Care: None marital status: marital status details: Lionel Sherman (34) [phone] Current Living Situation: Spouse Current Living Situation Comment: FOB and child. 2 dogs. current occupational status: employed current occupation: [employer] Feels Safe at Home: Yes Childhood Exposure to Second-Hand Smoke: Yes Dental Care, Regularly: Yes Physical Activity Frequency: 1-2 Times per Week Assistive Devices: None OB History Past Pregnancies Del. Date GA wks Lbr Lgth wt Sex Type del Anes Place Del Prov ? Comment 05/25/21 40 8lb 4.9oz F C-Sectio n Spinal [facility] Dr. Patino No Failure to progress Physical Exam Constitutional: WD/WN, vitals as above Neck: trachea midline, no thyromegaly Respiratory: normal respiratory effort, lungs clear to auscultation Cardiovascular: RRR, no murmur, no edema Extremities: + edema (tr); no calf tenderness Gastrointestinal (Abdomen): soft, gravid, nt Psychiatric: A+Ox3, euthymic affect Coding Level of Care Code None Diagnoses GDM (gestational diabetes mellitus) O24.419 with 39 completed weeks gestation Z3A.39 Short interval between pregnancies complicating , antepartum O09.899 Previous delivery affecting O34.219
--- NOTE | 2022-05-03 09:21 | Anesthesiology Consultation ---
Date of Service May 03, 2022 Assessment & Plan (1) Encounter for pre-operative examination: -Exam and advise: Patient seen at [facility] 03/21/22 as E&A for upcoming c/s with concerns stating her previous epidural did not work. Hx hydrocephalus s/p ARMED CUSTOM PROTECTION OFFICER shunt + revision (2019). Per records, patient had a (05/25/21): Epidural at L4-5 (x1 attempt) at [facility] for labor pain. Per anesthesia communication note: "The patient stated having increasing labor pains despite the epidural. I checked her sensation with an ice test and she had no level. The patient was in agreement that we should place another epidural. Another epidural was placed at L3/4. The patient did not have any change in sensation in her lower extremities but she did admit that her labor pains were much improved. The patient did note having some nausea and neck discomfort after epidural placement. I recommended that watch her symptoms, and we would re-evaluate if her symptoms worsened. I spoke with the OB nurse, and the plan was to revert to the original epidural settings because the previous epidural placement was in question. The patient was otherwise satisfied and comfortable after the 2nd epidural placement." Decision for c/s (patient did not reach adequate MVU for 6+ hours nor achieve full cervical dilation- prolonged course/suspected CPD), epidural removed and SAB placed for c/s- SAB at L3/4 (x1 attempt) at [facility].Patient reports that even during initial part of the c/s, she was still having pain/discomfort but then with additional IV medication, pain controlled for later part of c/s. Case reviewed with Dr. Mendez. Requested perioperative recommendations from patient's neurosurgeon. Received neurosurgery response (03/22/22): "from a neurosurgical perspective, there is no contraindication to have spinal or neuraxis anesthesia for Csection delivery. (Reviewed with Dr. Cooper)" -COVID screening: Per assessment on 03/21: No known COVID-19 positive contacts or current COVID-19 related symptoms. Travel screen negative. Surgeon arranging preop COVID testing. Awaiting results. -Cardiology office visit (12/30/21): "31-year-old woman with hydrocephalus (status post ARMED CUSTOM PROTECTION OFFICER shunt), gestational hypertension/diabetes during prior , currently second trimester noting tachypalpitations and chest discomfort with ambulatory monitoring showing sinus tachycardia correlating with her symptoms (occasional PVCs did not correlate).. Suspect her tachycardia is related to deconditioning, , and perhaps mild autonomic insufficiency. This does not appear to be an inappropriate sinus tachycardia given normal resting heart rate.. Since a mild cardiomyopathy could result in an increased adrenergic response to activity, would be worthwhile toobtain an echocardiogram to confirm normal left ventricular systolic function. Did recommend incremental aerobic exercise as tolerated during to decrease her adrenergic milieu and perhaps blunt her tachypalpitations. Would normally also recommend increase salt/sodium intake, but given her history of gestational hypertension did not advise her to alter her salt intake. 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 Surgery Operation Date: 05/22/22 07:30 Proposed Procedures p Section (Delivery of Baby through Abdominal Incision) - Chiquita Blair MD, FACOG Height/Weight Height: 5 ft 10 in Weight: 106.141 kg Allergies Allergy/AdvReac Type Severity Reaction Status Date / Time No Known Allergies Allergy Mild Verified 05/03/22 08:36 Medications Home Medications Medication Instructions Recorded Confirmed Last Taken vits no.124-ferrous fum 1 tab PO HS 05/22/21 05/03/22 05/23/21 27 mg iron-folic acid 800 mcg tablet ( Vitamin) ondansetron HCl 4 mg tablet 4 mg PO Q6H PRN nausea and 01/09/22 05/03/22 Unknown vomiting #30 tabs aspirin 81 mg tablet,delayed 81 mg PO QAM 05/03/22 05/03/22 Unknown release (Anat Low Dose Aspirin) omega-3 fatty acids-vitamin E 2 cap PO HS 05/03/22 05/03/22 Unknown 1,000 mg capsule omeprazole 20 mg tablet,delayed 20 mg PO QAM 05/03/22 05/03/22 Unknown release Past Medical History Medical History Anxiety GDM (gestational diabetes mellitus) Gestational hypertension First (near end of 40 weeks) Hemorrhoids History of gastroesophageal reflux (GERD) Hydrocephalus s/p ARMED CUSTOM PROTECTION OFFICER shunt, shunt revision (2019) Migraine headache Need for rhogam due to Rh negative mother Seizure Most recent 2011; no longer on anticonvulsants Past Family History Family History Grandfather Myocardial infarction Mother Basal cell carcinoma Hypertension Grandmother (Maternal) Lymphoma Denies family history of Ovarian cancer Prostate cancer Diabetes Breast cancer Colorectal cancer Past Surgical History Surgical History H/O brain surgery Third Ventriculostomy (2013) ARMED CUSTOM PROTECTION OFFICER shunt (2014) ARMED CUSTOM PROTECTION OFFICER shunt revision (2019) f/u in [facility] H/O esophagogastroduodenoscopy H/O thumb surgery Left H/O: section Per records, patient had a (05/25/21): Epidural at L4-5 (x1 attempt) at [facility] for labor pain. Per anesthesia communication note: "The patient s tated having increasing labor pains despite the epidural. I checked her sensation with an ice test and she had no level. The patient was in agreement that we should place another epidural. Another epidural was placed at L3/4. The patient did not have any change in sensation in her lower extremities but she did admit that her labor pains were much improved. The patient did note having some nausea and neck discomfort after epidural placement. I recommended that watch her symptoms, and we would re-evaluate if her symptoms worsened. I spoke with the OB nurse, and the plan was to revert to the original epidural settings because the previous epidural placement was in question. The patient was otherwise satisfied and comfortable after the 2nd epidural placement." Decision for c/s (patient did not reach adequate MVU for 6+ hours nor achieve full cervical dilation- prolonged course/suspected CPD), epidural removed and SAB placed for c/s- SAB at L3/4 (x1 attempt) at [facility]. S/P wisdom tooth extraction ARMED CUSTOM PROTECTION OFFICER (ventriculoperitoneal) shunt status Social History Smoking Status: Never smoker Do You Dip or Chew Tobacco: No Hx Alcohol Use: Yes ("very rare") Alcohol type: hard liquor Hx Substance Use: No substance use type: does not use Lab Results Anesthesia Preop Results Results Anesthesia Widget: Hgb 12.4 g/dL (12.0-16.0) 06/01/22 Hct 36.4 % (37-47) L 03/08/22 Urine Color Yellow 03/08/22 Urine Appearance Clear (Clear) 03/08/22 Urine pH 5.5 (4.5-7.5) 03/08/22 Urine Specific [place] 1.024 (1.000-1.030) 03/08/22 Urine Protein Negative (Negative) 03/08/22 Urine Glucose (UA) Negative (Negative) 03/08/22 Urine Ketones Negative (Negative) 03/08/22 Urine Blood Negative (Negative) 03/08/22 Urine Nitrite Negative (Negative) 03/08/22 Urine Bilirubin Negative (Negative) 03/08/22 Urine Urobilinogen Negative (Negative) 03/08/22 Urine Leukocyte Esterase Negative (Negative) 03/08/22 Antibody Screen NEGATIVE 03/08/22 Testing Electrocardiogram Date: 09/17/21 Findings: + NSR @ (83) Chest X-Ray Date: 09/17/21 FINDINGS: Single frontal view of the chest demonstrates the cardiomediastinal silhouette to be within normal limits. The lungs are clear of alveolar opaci ties. There is no evidence for pleural effusion. There is no evidence for vascular congestion. There is no acute osseous pathology. IMPRESSION: No acute cardiopulmonary disease. Echocardiogram Date: 02/10/22 EF 55-60%. No RWMA. No significant valvular disease. "Normal echocardiogram" per report.
[2022-05-22] MEDS ORDERED: LACTATED RINGER'S 1,000 ML IV SCH ×2 (05:45→08:30)
[2022-05-22 05:49] LABS: Basophils # (auto) 0.03 K/uL (0-0.2); Basophils % (auto) 0.3 %; Eosinophils # (auto) 0.15 K/uL (0-0.50); Eosinophils % (auto) 1.4 %; Hematocrit (blood only) 32.6 % (34.1-44.9); Hemoglobin 10.9 g/dl (12.0-16.0); Immature Granulocytes # (auto) 0.03 K/uL (0.00-0.02); Immature Granulocytes % (auto) 0.3 %; Lymphocytes # (auto) 2.22 K/uL (1.2-3.4); Lymphocytes % (auto) 21.2 %; Mean Corpuscular Hemoglobin 27.1 pg (25.0-34.0); Mean Corpuscular Hgb Conc 33.4 g/dL (32.0-36.0); Mean Corpuscular Volume 81.1 fL (80.0-100.0); Mean Platelet Volume 10.1 fL (9.4-12.3); Monocytes # (auto) 0.79 K/uL (0.24-0.82); Monocytes % (auto) 7.5 %; Neutrophils # (auto) 7.26 K/uL (1.4-6.5); Neutrophils % (auto) 69.3 %; Platelet Count 248 K/uL (130-400); RDW Coefficient of Variation 12.6 % (11.5-14.5); RDW Standard Deviation 37.1 fL (36.4-46.3); Red Blood Count 4.02 M/uL (3.93-5.22); White Blood Count 10.48 K/ul (4.8-10.8)
[2022-05-22] MEDS ORDERED: CITRIC ACID/SODIUM CITRATE 15 ML UDC PO SCH (06:00)
[2022-05-22] MEDS ORDERED: ONDANSETRON INJ 2 MG/ML 2 ML VIAL ONE (06:54)
[2022-05-22] MEDS ORDERED: MoRPHine SULFATE PF 1 MG/ML 10 ML AMP/VIAL ONE (06:54)
[2022-05-22] MEDS ORDERED: OXYTOCIN 10 UNITS/ML 10ML VIAL ONE (06:54)
[2022-05-22] MEDS ORDERED: fentaNYL citrate 100 MCG/2 ML VIAL ONE (06:54)
[2022-05-22 07:06] LABS: Appearance Urine Clear (Clear); Bacteria Urine Automated Negative (Negative); Bilirubin Urine Negative (Negative); Blood Urine Negative (Negative); Cast Urine Automated 0 /lpf (0-5); Color Urine Yellow; Epithelial Cell Urine Auto >30 /lpf (0-5); Glucose Urine UA Negative (Negative); Ketones Urine Negative (Negative); Leukocyte Esterase Urine Trace (Negative); Nitrite Urine Negative (Negative); Protein Urine Negative (Negative); RBC Urine Automated 0-4 /hpf (0-4); Urobilinogen Urine Negative (Negative)
--- NOTE | 2022-05-22 07:13 | History & Physical Bridge Note ---
Date of Service May 22, 2022 History & Physical Bridge Note I have examined the patient, reviewed the History & Physical and in the interval since the performance of the History & Physical I have noted the following changes of clinical significance: no changes noted
[2022-05-22] MEDS ORDERED: CARBOPROST TROMETHAMINE 250 MCG/ML AMPUL ONE (07:14)
[2022-05-22] MEDS ORDERED: METHYLERGONOVINE MALEATE 0.2 MG/ML AMP ONE (07:14)
[2022-05-22] MEDS ORDERED: LACTATED RINGER'S 500 ML IV PRN (07:42)
[2022-05-22] MEDS ORDERED: MoRPHine SULFATE PF 1 MG/ML 10 ML AMP/VIAL INT SPINAL ONE (07:42)
[2022-05-22] MEDS ORDERED: diphenhydrAMINE 50 MG/ML VIAL IV PRN (07:42)
[2022-05-22] MEDS ORDERED: NALOXONE HCL 0.4 MG/1 ML VIAL/CARP IV PRN (07:42)
[2022-05-22] MEDS ORDERED: NALOXONE HCL 1 MG in SODIUM CHLORIDE 0.9% 1000ML 1,000 ML IV PRN (07:42)
[2022-05-22] MEDS ORDERED: ePHEDrine sulfate 50 MG/ML AMP IV PRN (07:42)
[2022-05-22] MEDS ORDERED: NALBUPHINE HCL INJ 10 MG/ML AMP IV PRN (07:42)
[2022-05-22] MEDS ORDERED: NALOXONE HCL 0.08 MG in SYRINGE 1.8 ML IV PRN (07:42)
[2022-05-22] MEDS ORDERED: PROMETHAZINE HCL 6.25 MG in SODIUM CHLORIDE 0.9% 50 ML IV PRN (07:42)
[2022-05-22] MEDS ORDERED: MoRPHine SULFATE 2 MG/ML CARP IV PRN (07:42)
[2022-05-22] MEDS ORDERED: NO NARCOTICS OR SEDATIVES SCH (07:45)
[2022-05-22] MEDS ORDERED: SODIUM CHLORIDE 0.9% 1000ML 1,000 ML IV SCH (07:45)
[2022-05-22] MEDS ORDERED: DC INTRASPINAL MORPHINE SCH (07:45)
[2022-05-22] MEDS ORDERED: ePHEDrine sulfate 50 MG/ML AMP ONE (08:05)
[2022-05-22] MEDS ORDERED: DIPHTHERIA/TETANUS/PERTUSSIS 0.5 ML SYR/VIAL IM ONE (08:27)
[2022-05-22] MEDS ORDERED: BENZOCAINE 20% AER SPR 82.5 GM CAN EXT PRN (08:27)
[2022-05-22] MEDS ORDERED: MAGNESIUM HYDROXIDE SUSP 30 ML UDC PO PRN (08:27)
[2022-05-22] MEDS ORDERED: HYDROCORTISONE ACETATE 25 MG SUPP PR PRN (08:27)
[2022-05-22] MEDS ORDERED: SENNA 8.6 MG TAB PO PRN (08:27)
--- NOTE | 2022-05-22 08:35 | Anesthesiology Progress Note ---
Date of Service May 22, 2022 Anesthesia Post Procedure Vital Signs Vital Signs: Temp Pulse Resp BP Pulse Ox 05/22/22 07:05 36.8 C 18 05/22/22 05:51 36.6 C 85 18 128/74 05/22/22 08:30 89 96 05/22/22 08:28 92 H 125/64 05/22/22 07:06 87 125/83 05/22/22 05:46 36.6 C 85 18 128/74 Transfer of Care Handoff Completed per policy Notes Mental Status: alert / awake / arousable and participated in evaluation Patient Amnestic to Procedure: No Nausea / Vomiting: adequately controlled Pain: adequately controlled Airway Patency, RR, SpO2: stable & adequate BP & HR: stable & adequate Hydration State: stable & adequate Neuraxial Anesthesia: was administered and sensory block is resolving Anesthetic Complications: no major complications apparent and Pt Satisfied with anesthetic care
--- NOTE | 2022-05-22 08:37 | Operative Report ---
PG Post Operative Report Pre & Post Diagnosis Operation Date: 05/22/22 07:30 Pre-Op Diagnosis: (1) GDM (gestational diabetes mellitus): (2) with 39 completed weeks gestation: (3) Short interval between pregnancies complicating , antepartum: (4) Previous delivery affecting : I identified the patient and participated in the time-out.: Yes Procedure Operation Date: 05/22/22 07:30 Actual Procedures p repeat lower transverse Section in LD with result of live female child at 07(Not Applicable) - Chiquita Blair MD, FACOG Surgeon Chiquita Blair MD, FACOG Technology Project Manager Isabel Pizarro, PGY1 Estimated Blood Loss 500 Findings Consistent with Post-Op Diagnosis viable female , apgars 9/9. normal appearing uterus/tubes/ovs Fluids 1500cc Specimens placenta Drains orourke Anesthesia Type Spinal Complications none Disposition Accompanied Patient To Recovery: Yes Disposition: L&D Indications Patient is a 31yowf with iup at 39 weeks with hx of previous c/s and short interval. Description of Procedure The patient was taken to the operating room where she was identified verbally and by bracelet. She was seated on the operating table where a spinal anesthetic was placed by anesthesia. She was then placed in the supine position with a leftward tilt. A [place]ke catheter was placed sterilely. the patient was prepped and draped in a normal standard fashion. the anesthetic was tested and found to be adequate. A time-out was held, identifying correct patient, procedure, positioning and preoperative antibiotics. There were no concerns. A Pfannenstiel skin incision was made with a knife and taken down to the underlying layer of fascia with the knife and Bovie electrocautery. Bleeding was attended to with the Bovie. The fascia was incised in the midline with the knife and taken out laterally with scissors. The superior edge of the fascial incision was grasped, elevated and the underlying layer of rectus muscle was taken off bluntly and with scissors. In a similar fashion, the inferior edge of the fascial incision was grasped, elevated and the underlying layer of rectus muscle was taken off bluntly and with scissors. The muscles were bluntly in the midline. The peritoneum was entered bluntly. The incision was then stretched and opened sharply. The bladder blade was placed. The vesicouterine peritoneum was identified, entered with scissors and taken out laterally with scissors. The bladder flap was created digitally A hysterotomy incision was scored with a knife and the incision was stretched superiorly and i nferiorly with the do all operator's fingers. The operators hand was placed into the incision and the head was difficult to deliver. A vacuum was called for and applied x 4 with 4 popoffs. The head was then finally delivered with fundal pressure. No nuchal cord. The nose and mouth were bulb suctioned. the rest of the was then delivered without difficulty. The nose and mouth were again bulb suctioned. The cord was clamped and cut and the infant was then handed off to the awaiting signal apprentice for drying and attention. Cord blood and segment were obtained. The placenta was Manually extracted. The uterus was exteriorized and cleared of all clot and debris with moistened laparotomy sponges. The hysterotomy incision was repaired in two layers, the first in a running locked layer, the second in an imbricating layer. Hemostasis was noted to be good. Posterior cul-de-sac was irrigated and cleared of all clot and debris. The hysterotomy incision was again inspected and 2 figure of eight sutures of 0 Vicryl were used. Hemostasis was then good. the uterus was reinteriorized. Hysterotomy incision was again inspected and found to be hemostatic. The fascia was then reapproximated with 0 Vicryl starting at the edges and meeting in the midline. The subcuticular tissues were copiously irrigated and bleeding was attended to with cautery. The skin was then closed with 4-0 Vicryl in a subcuticular fashion. All sponge, lap and needle counts were correct x 2. the patient tolerated the procedure well and was taken to the recovery room in stable condition. I attest to the content of the Intraoperative Record and any orders documented therein. Any exceptions are noted below.
[2022-05-22] MEDS ORDERED: OXYTOCIN 20 UNITS in LACTATED RINGER'S 1,000 ML IV SCH (08:45)
--- NOTE | 2022-05-22 09:56 | Communication Note ---
Date of Service: May 22, 2022 Nursing concerned about her bleeding. Has passed a couple of small clots with some small gushes. Fundus feels firm. Exam allows one finger into the uterus. Some clot palpated in the paulie that was broken up with my finger. Then about 50cc clot expressed from the uterus. Reexam shows decreased clot. Will contine pitocin iv and continue to monitor closely. Vital signs are stable.
[2022-05-22] MEDS: KETOROLAC 30 MG/ML VIAL IV PRN ×2 (11:35→16:31)
[2022-05-22] MEDS: ONDANSETRON INJ 2 MG/ML 2 ML VIAL IV PRN ×2 (11:36→16:31)
[2022-05-22] MEDS: SIMETHICONE 80 MG CHEW PO SCH ×3 (13:00→22:45)
[2022-05-22] MEDS: DOCUSATE SODIUM 100 MG CAP PO SCH (22:44)
[2022-05-23] MEDS ORDERED: PROMETHAZINE HCL 25 MG in SODIUM CHLORIDE 0.9% 50 ML IV PRN (01:42)
[2022-05-23] MEDS ORDERED: MEPERIDINE HCL 50 MG/ML CARP IV PRN (01:42)
[2022-05-23] MEDS ORDERED: ONDANSETRON INJ 2 MG/ML 2 ML VIAL IV PRN (01:42)
[2022-05-23] MEDS ORDERED: KETOROLAC 30 MG/ML VIAL IV PRN (01:42)
[2022-05-23] MEDS ORDERED: diphenhydrAMINE Capsule 25 MG CAP PO PRN (01:42)
[2022-05-23] MEDS ORDERED: diphenhydrAMINE 50 MG/ML VIAL IV PRN (01:42)
[2022-05-23] MEDS: oxyCODONE/ACETAMINOPHEN 5mg/325mg TAB PO PRN ×5 (02:08→22:29)
[2022-05-23] MEDS: IBUPROFEN 600 MG TAB PO PRN ×5 (02:08→22:28)
--- NOTE | 2022-05-23 05:48 | Obstetrical Progress Note ---
Date of Service <Clau Salinas DO - Last Filed: 05/23/22 07:28> May 23, 2022 Assessment & Plan <Clau Salinas DO - Last Filed: 05/23/22 07:28> (1) Encounter for supervision of normal in multigravida, antepartum: (2) with 39 completed weeks gestation: (3) Previous delivery affecting : (4) GDM (gestational diabetes mellitus): Plan s/p POD 1: -Vital signs reviewed and WNL, Tmax at 37 -Hemoglobin reviewed 10.9 (05/22) -Patient is doing well clinically -Encourage ambulation, monitor and treat pain PRN, monitor lochia -Return to normal diet <Chiquita Blair MD, FACOG - Last Filed: 05/23/22 07:31> (1) Encounter for supervision of normal in multigravida, antepartum: (2) with 39 completed weeks gestation: (3) Previous delivery affecting : (4) GDM (gestational diabetes mellitus): Subjective <Clau Salinas DO - Last Filed: 05/23/22 07:28> Patricia is a 31 y/o female who is POD #1 following repeat delivery at 39 weeks. She is antibody positive and this was a short interval . Patient was seen and examined at bedside. She reports feeling well overall this morning. Has some pain when she moves around, currently a 6/10. Voiding without issue, has peed 2x since orourke removed. Able to ambulate some. Was very nauseous yesterday and vomited several times, state she is not nauseated now. Has not been passing gas and no bowel movement. Has some persistent lochia with some improvement this morning, some clots but better than yesterday. Currently breast feeding. Constitutional: no fever, no chills or no sweats Respiratory: no cough, no dyspnea or no wheezing Cardiovascular: no chest pain, no palpitations or no calf pain Breast: no breast pain Genitourinary (female): no dysuria Neurologic: no headache(s) Physical Exam <Clau Salinas DO - Last Filed: 05/23/22 07:28> Constitutional WD/WN, vitals as above no acute distress Respiratory no respiratory distress Auscultation: lungs clear to auscultation bilaterally; no rales, no rhonchi and no wheezes Cardiovascular RRR, no murmur, no edema Extremities: no calf tenderness and no edema Negative Zachary's sign bilaterally. Gastrointestinal (Abdomen) Inspection/Auscultation: normal bowel sounds Genitourinary Uterine fundus firm, palpable below the umbilicus. Surgical incision is clean and healing well. Results & Data ([facility]) <Clau Salinas, - Last Filed: 05/23/22 07:28> Vital Signs (Past 12 Hours) Vital Signs Temp Pulse Resp BP Pulse Ox O2 Del Method 05/23/22 01:00 18 99 05/23/22 00:00 18 99 05/22/22 23:00 18 99 05/22/22 22:00 18 99 05/23/22 02:32 37 C 89 18 112/72 99 Room Air 05/22/22 23:00 36.9 C 86 16 130/79 98 Room Air 05/22/22 23:00 18 98 05/22/22 20:00 18 99 05/22/22 19:00 18 100 05/22/22 20:00 36.6 C 87 16 119/76 100 Room Air <Chiquita Blair MD, FACOG - Last Filed: 05/23/22 07:31> Co-Signing Physician Notes Resident Physician Supervision Note: I interviewed and examined the patient. Discussed with Dr. Salinas and agree with findings and plan as documented in the note. Any exceptions or clarifications are listed here: Doing overall well. Nausea has resolved. hgb this am is 8.7. Has been up to the BR x 2 without issues. routine care. Documented By: Chiquita Blair MD, FACOG
[2022-05-23 06:35] LABS: Basophils # (auto) 0.03 K/uL (0-0.2); Basophils % (auto) 0.3 %; Eosinophils # (auto) 0.17 K/uL (0-0.50); Hematocrit (blood only) 25.4 % (34.1-44.9); Hemoglobin 8.7 g/dl (12.0-16.0); Immature Granulocytes # (auto) 0.04 K/uL (0.00-0.02); Immature Granulocytes % (auto) 0.5 %; Lymphocytes # (auto) 1.83 K/uL (1.2-3.4); Lymphocytes % (auto) 21.2 %; Mean Corpuscular Hemoglobin 27.7 pg (25.0-34.0); Mean Corpuscular Hgb Conc 34.3 g/dL (32.0-36.0); Mean Corpuscular Volume 80.9 fL (80.0-100.0); Mean Platelet Volume 10.3 fL (9.4-12.3); Monocytes # (auto) 0.65 K/uL (0.24-0.82); Monocytes % (auto) 7.5 %; Neutrophils # (auto) 5.92 K/uL (1.4-6.5); Neutrophils % (auto) 68.5 %; Platelet Count 213 K/uL (130-400); RDW Standard Deviation 37.9 fL (36.4-46.3); Red Blood Count 3.14 M/uL (3.93-5.22); White Blood Count 8.64 K/ul (4.8-10.8)
[2022-05-23] MEDS: FERROUS SULFATE 325 MG TAB PO SCH (07:20)
[2022-05-23] MEDS: PRENATAL VITAMIN 1 TAB PO SCH (07:20)
[2022-05-23] MEDS: DOCUSATE SODIUM 100 MG CAP PO SCH ×2 (07:20→20:46)
[2022-05-23] MEDS: SIMETHICONE 80 MG CHEW PO SCH ×4 (07:20→20:47)
[2022-05-23] MEDS ORDERED: FAMOTIDINE 20 MG TAB PO ONE (09:30)
[2022-05-23] MEDS ORDERED: bisacodyL 5 MG TABEC PO SCH (20:00)
[2022-05-24] MEDS: IBUPROFEN 600 MG TAB PO PRN ×3 (05:13→14:41)
[2022-05-24] MEDS: oxyCODONE/ACETAMINOPHEN 5mg/325mg TAB PO PRN ×3 (05:13→14:41)
--- NOTE | 2022-05-24 05:48 | Obstetrical Progress Note ---
Date of Service May 24, 2022 Assessment & Plan (1) Encounter for supervision of normal in multigravida, antepartum: (2) with 39 completed weeks gestation: (3) Previous delivery affecting : (4) GDM (gestational diabetes mellitus): Plan s/p POD 2: -Vital signs reviewed and WNL, Tmax at 37.2 -Hemoglobin reviewed 10.9 (05/22), 8.7 (05/23) -Patient is doing well clinically -Encourage ambulation, monitor and treat pain PRN, monitor lochia -Return to normal diet Subjective Patricia is 31 y.o. who is POD #2 and delivered via repeat at 39 weeks. Her was complicated by short-interval . Patient was seen and examined at bedside. This morning she states she is doing well overall. Pain is X/10 and well controlled with analgesics. Has been able to ambulate some. Is voiding without issue. Tolerating meals overnight and denies any nausea or vomiting. Has been passing gas but has not had a bowel movement yet. Has increased lochia this morning, denies any clots. Is currently . Constitutional: no fever, no chills or no sweats Respiratory: no cough, no dyspnea or no wheezing Cardiovascular: no chest pain, no palpitations or no calf pain Breast: no breast pain Genitourinary (female): no dysuria Neurologic: no headache(s) Physical Exam Constitutional WD/WN, vitals as above no acute distress Respiratory no respiratory distress Auscultation: lungs clear to auscultation bilaterally; no rales, no rhonchi and no wheezes Cardiovascular RRR, no murmur, no edema Extremities: no calf tenderness and no edema Gastrointestinal (Abdomen) Inspection/Auscultation: normal bowel sounds Genitourinary Uterine fundus is firm, palpable below umbilicus. Surgical incision is clean and healing well. Results & Data ([facility]) Vital Signs (Past 12 Hours) Vital Signs Temp Pulse Resp BP Pulse Ox O2 Del Method 05/23/22 20:00 36.9 C 81 16 114/71 97 Room Air
--- NOTE | 2022-05-24 06:20 | Obstetrical Progress Note ---
Date of Service May 24, 2022 Assessment & Plan (1) exam: Plan stable, ok for dc home. instructions reviewed. f/u 6wk pp check. reviewed on pa pdmp. Day #:: 2 Subjective Ambulation: ambulating normally Voiding: no voiding problems Passing Gas:: Yes Diet Tolerance:: regular diet Lochia:: Small Feeding Type:: breast feeding doing well, pain well controlled. ready for dc. Physical Exam Constitutional WD/WN, vitals as above Respiratory normal respiratory effort, lungs clear to auscultation Cardiovascular Rate/Rhythm: regular rate and regular rhythm Gastrointestinal (Abdomen) Inspection/Auscultation: abdomen normal to inspection and + abdominal surgical incision (c/d/i with steris) Percussion/Palpation: abdomen soft Fundus firm 2cm down Musculoskeletal nt calves no edema Neurologic grossly normal Psychiatric A+Ox3, euthymic affect Results & Data ([facility]) Vital Signs (Past 12 Hours) Vital Signs Temp Pulse Resp BP Pulse Ox O2 Del Method 05/24/22 04:00 98.1 F 81 18 118/79 97 Room Air 05/23/22 20:00 98.4 F 81 16 114/71 97 Room Air
[2022-05-24 07:42] LABS: Hematocrit (blood only) 26.6 % (34.1-44.9); Hemoglobin 8.7 g/dl (12.0-16.0)
[2022-05-24] MEDS ORDERED: bisacodyL 10 MG SUPP PR PRN (08:27)
[2022-05-24] MEDS: SIMETHICONE 80 MG CHEW PO SCH ×2 (08:51→14:41)
[2022-05-24] MEDS: PRENATAL VITAMIN 1 TAB PO SCH (08:51)
[2022-05-24] MEDS: DOCUSATE SODIUM 100 MG CAP PO SCH (08:51)
[2022-05-24] MEDS: FERROUS SULFATE 325 MG TAB PO SCH (08:51)
[2022-05-24] MEDS ORDERED: FAMOTIDINE 20 MG TAB PO SCH (09:00)
--- NOTE | 2022-05-25 16:07 | Discharge Summary (DS) ---
DATE OF ADMISSION: 05/22/2022. DATE OF DISCHARGE: 05/24/2022 ADMITTING DIAGNOSES: 1. Intrauterine at 39 weeks. 2. History of previous section. 3. Short interval. 4. Gestational diabetes. POSTOPERATIVE DIAGNOSES: 1. Intrauterine at 39 weeks. 2. History of previous section. 3. Short interval. 4. Gestational diabetes. PROCEDURE: Repeat low transverse section. HISTORY: The patient is a 31-year-old white female, 2, para 1-0-0-1, who presents to labor a nd delivery at 39 and 0/7th weeks for repeat . She had a short interval with a C- section for failure to progress in 05/2021. Given that repeat has been recommended. She h as been a diet-controlled gestational diabetic. Her last ultrasound on 03/29/2022 showed an AC in th e 69th percentile, estimated weight 83rd percentile with a normal BPP. She has a history of ge stational hypertension. Blood pressures have been controlled and she has been on a baby aspirin. Sh e is Rh negative and received RhoGAM. She has a history of a ventriculoperitoneal shunt placed on . She has seen anesthesia and been cleared. For the rest of the patient's detailed history a nd physical, please see her history and physical. ASSESSMENT: This is a 2, para 1-0-0-1, at 39+ weeks who presents for repeat section because of short interval. HOSPITAL COURSE: The patient was admitted. She underwent a repeat low transverse section w ithout difficulty to deliver a live female child, Apgars of 9 and 9. The patient's postoperative cou rse was complicated by a little bit of bleeding in the immediate postoperative period. An exam was d one, the fundus was firm. One finger could be placed into the uterus through the cervix and some gabino t was palpated in the lower uterine segment that was broken up and expressed. Bleeding was then exce llent after that and controlled with dilute Pitocin. The patient's postoperative course was otherwis e uncomplicated. She tolerated a regular diet, ambulated without difficulty, voided after the remova l of her Gonzalez catheter and had her pain well controlled on oral pain medications. She initially on admission had an antibody screen that was positive, but then it was corrected to O negative, antibody screen negative. She was discharged home on postoperative day #2. Her discharge H and H was 8.7 an d 26.6, starting from a hemoglobin of 10.9. The patient will return in six weeks for a postoperative check. Job ID: [id number]
== END 2022-05-24 15:00 | disposition home or self-care (01) | DRG 807 ==
LOC: 4S1 05:21 → EDSTATUS 07:30 → 4E2 11:33